=== PATIENT | male | born 1960 | race Caucasian/White ===

== ENCOUNTER → 2018-06-24 | Outpatient (CLI) | payer OTHER ==
--- NOTE | 2018-06-26 13:42 | PN ---
DATE OF SERVICE: 06/24/2018 Hospice [id number] Visit On Sunday, June 24, 2018, I saw Mr. Steven River at his primary residence in [place], [place]. Mr. River was seen for the purpose of a hospice [id number] visit to determine ongoing eligibility for hospice services. Mr. River has a primary hospice diagnosis of end-stage oxygen-dependent COPD. Since he was last seen, approximately 2 months ago, Mr. River has noted further decline in his respiratory and physical status. He has been totally housebound and for the most part, spends a vast majority of time in bed. He does get up to use the bathroom, but that is about it. He eats in bed. His respiratory status has been worse with increased shortness of breath with activity, and he feels progressively more weak and fatigued. His weight tends to vary dependent on his peripheral edema secondary to cor pulmonale. PHYSICAL EXAMINATION: CARDIAC: Distant heart sounds. S1, S2 normal. No murmurs, S3 or S4. LUNGS: Diffusely decreased breath sounds with bilateral loud expiratory wheezes and prolonged expiratory phase. Intermittent rhonchi are present. There are no rales. ABDOMEN: Soft and nontender without palpable masses or organomegaly. EXTREMITIES: At the present time, he has 1+ edema of both lower extremities extending into the lower legs. IMPRESSION: Mr. River has a primary hospice diagnosis of end-stage oxygen-dependent chronic obstructive pulmonary disease. He has shown evidence of further physical and respiratory decline over the last 60 days and remains very appropriate for hospice care. PLAN: Mr. River will be re-certified for hospice services for an additional 60 days. Catrachito Iverson MD /[id number]
== END ==
LOC: JP.FACEHOS 08:00
DX: Z51.5 Encounter for palliative care (principal)

== ENCOUNTER 2019-11-22 11:03 | Emergency (ER) | payer MEDICARE, OTHER ==
[2019-11-22] MEDS ORDERED: Morphine 4 MG/ML Syringe IVPUSH PRN (11:38)
[2019-11-22] MEDS ORDERED: Prochlorperazine 10 MG/2 ML SDV IVPUSH PRN (11:39)
[2019-11-22] MEDS ORDERED: Sodium Chloride 0.9% 1,000 ML IV SCH (11:45)
--- NOTE | 2019-11-22 11:54 | EDM.PDOC ---
ED HPI GENERAL MEDICAL PROBLEM - General Chief Complaint: General Stated Complaint: MEDICAL VIA [place] Time Seen by Provider: 11/22/19 11:06 Source of Information: Reports: Patient History Limitations: Reports: No Limitations - History of Present Illness INITIAL COMMENTS - FREE TEXT/NARRATIVE: 59-year-old male with multiple health problems including COPD, opioid analgesic therapy, diabetes mellitus type 2 and chronic pain presents to the emergency department with new onset of supraumbilical abdominal pain. He reports that started approximately 230 this morning and is moderately severe. It is cramping in nature and nonradiating. He denies nausea or vomiting. He reports his appetite is decreased. He had a bowel movement this morning which was normal. He denies fever or chills. Denies sweating. He denies chest pain. He is on many medications including an albuterol inhaler, oxycodone intermediate release and continuous release. He is on Ativan (but denies that he is currently taking it) metformin twice a day and prednisone 10 mg 2 daily. His primary care provider is Shey Aguila in [place]. - Related Data Allergies Allergy/AdvReac Type Severity Reaction Status Date / Time No Known Allergies Allergy Verified 11/22/19 12:01 Home Meds: Home Meds Albuterol [Ventolin HFA] 2 puff INH Q4HWA PRN 11/22/19 [History] Doxycycline Monohydrate 100 mg PO BID 11/22/19 [History] metFORMIN HCl [Metformin HCl] 500 mg PO BID 11/22/19 [History] oxyCODONE HCl [Oxycodone HCl] 30 mg PO Q4HWA PRN MDD 30 tabs 11/22/19 [History] oxyCODONE HCl [Oxycontin] 60 mg PO Q12HR PRN 11/22/19 [History] predniSONE [Prednisone] 10 mg PO BID 11/22/19 [History] Past Medical History Cardiovascular History: Reports: Hypertension Respiratory History: Reports: Bronchitis, Recurrent, Pneumonia, Recurrent, Pulmonary Fibrosis, Other (See Below) Other Respiratory History: Panlobar emphysema Endocrine/Metabolic History: Reports: Diabetes, Type II ED ROS GENERAL - Review of Systems Review Of Systems: See Below Constitutional: Denies: Fever, Chills, Diaphoresis HEENT: Reports: No Symptoms Respiratory: Reports: Shortness of Breath Cardiovascular: Reports: No Symptoms Endocrine: Denies: Polydypsia, Polyuria GI/Abdominal: Reports: Abdominal Pain. Denies: Constipation, Diarrhea, Nausea : Reports: No Symptoms Musculoskeletal: Reports: Other (Generalized muscle pain.) Psychiatric: Reports: Anxiety ED EXAM, GENERAL - Physical Exam Exam: See Below Exam Limited By: No Limitations General Appearance: Alert, Moderate Distress Ears: Normal External Exam, Normal Canal, Normal TMs Throat/Mouth: Normal Inspection Head: Normocephalic Respiratory/Chest: No Respiratory Distress Cardiovascular: Normal Peripheral Pulses, Regular Rate, Rhythm, No Murmur GI/Abdominal: Normal Bowel Sounds, Other (He has tenderness over the periumbilical area and epigastrium.) Extremities: Normal Inspection Psychiatric: Anxious Skin Exam: Warm, Dry, Intact Course - Vital Signs Text/Narrative:: This patient presents with new abdominal pain. Vital signs were stable and an IV was started. He was given the fluids as well as for milligrams of IV morphine and 5 mg IV Compazine. Imaging, EKG and lab work was ordered. His serum potassium was low at 2.1 and he was given a dose of IV KCl. P.o. KCl was ordered but he refused it. He has a lactic acid of 3.4 (he is on metformin. His blood sugar is elevated at 313 and uncorrected sodium was 128. Corrected sodium is 133. His serum CO2 was 36 and he had no anion gap. His creatinine is 1.3 and BUN is 56. His AST is elevated at 102 and ALT 71. Alkaline phosphatase is normal as is lipase. LDH is normal at 189. Urinalysis shows positive ketones but otherwise is normal. EKG shows no acute changes. The patient refused a chest x-ray. CT scan of the abdomen and pelvis shows no acute changes. The patient ambulated in the department without assistance. He difficult to manage in the department as he removed his IV multiple times and refused last including the x-ray as well as the oral potassium. The patient demonstrated that he understood the requests and could follow commands. His judgment did not seem to be impaired and his cognition appeared to be intact. The patient is being discharged home with his . He was advised to take a s tool softener and was given a prescription for supplemental potassium at 20 mEq twice daily for 2 weeks. He should follow-up with his primary care provider in the clinic. He will return here as needed. I believe his elevated lactic acid is a type B increase and related to his medications and COPD. The patient has no evidence of sepsis. The patient's vital signs are stable. Last Recorded V/S: Last Vital Signs Temp 37.1 C 11/22/19 11:22 Pulse 114 H 11/22/19 11:22 Resp 18 11/22/19 11:22 BP 116/65 11/22/19 11:22 Pulse Ox 93 L 11/22/19 11:22 - Orders/Labs/Meds Orders: Active Orders 24 hr Category Date Time Status Sodium Chloride 0.9% [Normal Saline] 1,000 ml Med 11/22/19 11:45 Active IV ASDIRECTED Sodium Chloride 0.9% [Normal Saline] 80 ml Med 11/22/19 12:45 Active IV ASDIRECTED Medication Orders Sodium Chloride (Normal Saline) 1,000 mls @ 1,000 mls/hr IV ASDIRECTED BETTYE Last Admin: 11/22/19 12:33 Dose: 1,000 mls/hr Documented by: MANE Sodium Chloride (Normal Saline) 80 mls @ 3.5 mls/sec IV ASDIRECTED BETTYE Last Admin: 11/22/19 12:49 Dose: 3.5 mls/sec Documented by: NATIVIDAD Labs: Laboratory Tests 11/22/19 11/22/19 11/22/19 Range/Units 11:43 12:03 12:03 Sodium 128 L (140-148) mmol/L Potassium 2.1 L* (3.6-5.2) mmol/L Chloride 84 L (100-108) mmol/L Carbon Dioxide 36 H (21-32) mmol/L Anion Gap 10.1 (5.0-14.0) mmol/L BUN 10 (7-18) mg/dL Creatinine 1.3 (0.8-1.3) mg/dL Est Cr Clr Drug Dosing 63.55 mL/min Estimated GFR (MDRD) 56 L (>60) Glucose 313 H (74-106) mg/dL Lactic Acid 3.4 H (0.4-2.0) mmol/L Calcium 8.7 (8.5-10.1) mg/dL Total Bilirubin 1.6 H (0.2-1.0) mg/dL AST 102 H (15-37) U/L ALT 71 (12-78) U/L Alkaline Phosphatase 82 (46-116) U/L Lactate Dehydrogenase 189 (85-227) U/L Troponin I < 0.017 (0.000-0.056) ng/mL Total Protein 6.7 (6.4-8.2) g/dL Albumin 2.8 L (3.4-5.0) g/dL Globulin 3.9 H (2.3-3.5) g/dL Albumin/Globulin Ratio 0.7 L (1.2-2.2) Lipase 98 (73-393) U/L Urine Color Yellow (YELLOW) Urine Appearance Clear (CLEAR) Urine pH 8.5 H (5.0-8.0) Ur Specific [place] 1.015 (1.008-1.030) Urine Protein Negative (NEGATIVE) mg/dL Urine Glucose (UA) 250 H (NEGATIVE) mg/dL Urine Ketones 15 H (NEGATIVE) mg/dL Urine Occult Blood Negative (NEGATIVE) Urine Nitrite Negative (NEGATIVE) Urine Bilirubin Negative (NEGATIVE) Urine Urobilinogen 2.0 H (0.2-1.0) EU/dL Ur Leukocyte Esterase Negative (NEGATIVE) Urine RBC Not seen (0-5) Urine WBC Not seen (0-5) Ur Epithelial Cells Rare Amorphous Sediment Rare Urine Bacteria Not seen Urine Mucus Rare Meds: Medications Generic Name Dose Route Start Last Admin Trade Name Freq PRN Reason Stop Dose Admin Sodium Chloride 1,000 mls @ 1,000 mls/hr 11/22/19 11:45 11/22/19 12:33 Normal Saline IV 1,000 mls/hr ASDIRECTED BETTYE Administration Sodium Chloride 80 mls @ 3.5 mls/sec 11/22/19 12:45 11/22/19 12:49 Normal Saline IV 3.5 mls/sec ASDIRECTED BTETYE Administration Discontinued Medications Generic Name Dose Route Start Last Admin Trade Name Freq PRN Reason Stop Dose Admin Prochlorperazine Edisylate 5 51 mls @ 150 mls/hr 11/22/19 12:26 mg/ Sodium Chloride IV 11/22/19 12:46 ONETIME ONE Potassium Chloride 20 meq/ 100 mls @ 50 mls/hr 11/22/19 12:51 11/22/19 13:11 Premix IV 11/22/19 14:50 50 mls/hr ONETIME ONE Administration Iopamidol 130 ml 11/22/19 12:45 11/22/19 12:49 Isovue-300 (61%) IV 11/22/19 12:46 130 ml ONETIME ONE Administration Morphine Sulfate 4 mg 11/22/19 11:38 Morphine IVPUSH Q2H PRN Abdominal Pain Morphine Sulfate 4 mg 11/22/19 12:25 Morphine IVPUSH 11/22/19 12:26 ONETIME ONE Potassium Chloride 40 meq 11/22/19 13:30 11/22/19 13:26 Klor-Con M20 PO 11/22/19 13:31 40 meq ONETIME ONE Administration Prochlorperazine Edisylate 5 mg 11/22/19 11:39 Compazine IVPUSH Q6H PRN Nausea/Vomiting Prochlorperazine Edisylate 5 mg 11/22/19 12:55 11/22/19 13:11 Compazine IVPUSH 11/22/19 12:56 5 mg ONETIME ONE Administration Sodium Chloride 10 ml 11/22/19 12:45 11/22/19 12:49 Saline Flush FLUSH 11/22/19 12:46 10 ml ONETIME ONE Administration Departure - Departure Time of Disposition: 15:19 Disposition: Home, Self-Care 01 Condition: Fair Clinical Impression: Abdominal pain, Hypokalemia - Discharge Information *PRESCRIPTION DRUG MONITORING PROGRAM REVIEWED*: No *COPY OF PRESCRIPTION DRUG MONITORING REPORT IN PATIENT VIN: No Instructions: Hypokalemia Referrals: PCP,None [Primary Care Provider] - Forms: ED Department Discharge Additional Instructions: Take your usual medications. Follow-up with your primary care provider. Sepsis Event Note (ED) - Evaluation Sepsis Screening Result: No Definite Risk - Focused Exam Vital Signs: Vital Signs Temp Pulse Resp BP Pulse Ox 11/22/19 11:22 37.1 C 114 H 18 116/65 93 L 11/22/19 11:16 114 H 18 116/65 93 L - My Orders Last 24 Hours: My Active Orders 11/22/19 11:45 Sodium Chloride 0.9% [Normal Saline] 1,000 ml IV ASDIRECTED 11/22/19 12:45 Sodium Chloride 0.9% [Normal Saline] 80 ml IV ASDIRECTED - Assessment/Plan Last 24 Hours: My Active Orders 11/22/19 11:45 Sodium Chloride 0.9% [Normal Saline] 1,000 ml IV ASDIRECTED 11/22/19 12:45 Sodium Chloride 0.9% [Normal Saline] 80 ml IV ASDIRECTED
[2019-11-22] MEDS ORDERED: Morphine 4 MG/ML Syringe IVPUSH ONE (12:25)
[2019-11-22] MEDS ORDERED: Prochlorperazine 5 MG in Sodium Chloride 0.9% 50 ML IV ONE (12:26)
[2019-11-22] MEDS ORDERED: Sodium Chloride 0.9% 80 ML IV SCH (12:45)
[2019-11-22] MEDS ORDERED: Sodium Chloride 0.9% 10 ML Syringe FLUSH ONE (12:45)
[2019-11-22] MEDS ORDERED: Iopamidol 612 MG/ML 500 ML Multipack Bottle IV ONE (12:45)
[2019-11-22] MEDS ORDERED: Potassium Chloride 20 MEQ in Premix Bag 1 BAG IV ONE (12:51)
[2019-11-22] MEDS ORDERED: Prochlorperazine 10 MG/2 ML SDV IVPUSH ONE (12:55)
[2019-11-22] MEDS ORDERED: Potassium Chloride 20 MEQ Tab.ER PO ONE (13:30)
--- NOTE | 2019-11-22 13:40 | CT ---
Abdomen Pelvis w Cont CLINICAL HISTORY: Epigastric pain COMPARISON: None. TECHNIQUE: Transverse scans were obtained from the base of the lungs to the pubic symphysis following oral contrast and IV infusion of contrast.Auto dosage reduction and iterative reconstructiontechniques employed. FINDINGS: The lung bases contain to granulomata on the left. The liver shows some diffuse fatty infiltration. There is a subcentimeter vague low-attenuation focus in the medial segment of the left lobe of the liver. This may be a small cyst.. The gallbladder has a normal appearance. The spleen contains a few granulomata. Its upper limits of normal size. The pancreas shows no mass or inflammatory change. The adrenal glands appear normal bilaterally . The kidneys show no mass, stones or hydronephrosis. The ureters have a normal course and caliber. The aorta shows atheromatous plaque without aneurysm. There is no suspicious retroperitoneal adenopathy. The intestinal configuration is nonacute. The appendix has a normal contour there are a few scattered isolated diverticula without evidence of diverticulitis. IMPRESSION: Fatty infiltration the liver Borderline splenomegaly Previous granulomatous exposure Minimal diverticulosis without evidence of diverticulitis
== END 2019-11-22 16:37 | disposition home or self-care (01) ==
LOC: JP.ED 11:03 → EEVIPCON 11:03 → JP.ED 16:37
DX: E87.6 Hypokalemia (principal); R10.33 Periumbilical pain; R10.13 Epigastric pain; I10 Essential (primary) hypertension; J44.9 Chronic obstructive pulmonary disease, unspecified; E11.9 Type 2 diabetes mellitus without complications; Z79.899 Other long term (current) drug therapy; Z79.84 Long term (current) use of oral hypoglycemic drugs
CPT/HCPCS: 36415; 74177; 80053; 81001; 83605; 83615; 83690; 84484; 96361; 96365; 96366; 96375; 99284; 99285; A9270; J0780; J3480; J7030; J7050; Q9967

== ENCOUNTER 2020-12-20 13:23 | Emergency (ER) | payer MEDICARE, SELFPAY ==
[2020-12-20] MEDS ORDERED: Sodium Chloride 0.9% 500 ML IV ONE (14:05)
--- NOTE | 2020-12-20 14:12 | EDM.PDOC ---
ED HPI GENERAL MEDICAL PROBLEM - General Chief Complaint: Neurological Problem Stated Complaint: SOB,CONFUSION Time Seen by Provider: 12/20/20 13:33 Source of Information: Reports: Patient, Family, Old Records History Limitations: Reports: Altered Mental Status - History of Present Illness INITIAL COMMENTS - FREE TEXT/NARRATIVE: 60-year-old male sent from doctor's office where he appeared today with notable confusion according to the of increasing severity for the last several days or weeks. He is not apparent been eating well or drinking well and was noted by the nurse today to have his mask on vertically and when he was offered water he could not find his mouth. reports has not been this confused before as he is usually fully mentally alert. He is on supplemental oxygen at home but current because of severe COPD apparently and on the visit to the emergency department recently he was not have a potassium of about 2 and other chemistry abnormalities although he did go home later in the stay. He apparently has bad COPD as a principal problem. Apparently recently diagnosed with diabetes as well and started on insulin. - Related Data Allergies Allergy/AdvReac Type Severity Reaction Status Date / Time No Known Allergies Allergy Verified 12/20/20 13:29 Home Meds: Home Meds Albuterol [Ventolin HFA] 2 puff INH Q4HWA PRN 11/22/19 [History] Doxycycline Monohydrate 100 mg PO BID 11/22/19 [History] metFORMIN HCl [Metformin HCl] 500 mg PO BID 11/22/19 [History] oxyCODONE HCl [Oxycodone HCl] 30 mg PO Q4HWA PRN MDD 30 tabs 11/22/19 [History] oxyCODONE HCl [Oxycontin] 60 mg PO Q12HR PRN 11/22/19 [History] predniSONE [Prednisone] 10 mg PO BID 11/22/19 [History] Past Medical History Cardiovascular History: Reports: Hypertension Respiratory History: Reports: Bronchitis, Recurrent, Pneumonia, Recurrent, Pulm onary Fibrosis, Other (See Below) Other Respiratory History: Panlobar emphysema Endocrine/Metabolic History: Reports: Diabetes, Type II Social & Family History - Tobacco Use Tobacco Use Status *Q: Never Tobacco User ED ROS GENERAL - Review of Systems Review Of Systems: Comprehensive ROS is negative, except as noted in HPI. (Review of systems done between patient and ) - Physical Exam Exam: See Below Text/Narrative:: 60-year-old male with relatively normal vital signs sitting on a gurney trying to give me history but does slowly and repetitively and does not seem to really understand what he is talking about. History is primarily given by the . HEENT shows eyes ears nose and throat appear to be normal mouth is perhaps dry. There is no facial droop and pelvis are nontender on compression Neck is supple normal range of motion Chest is got some scattered rhonchi but regular rate and rhythm and no murmur is noted Abdomen is very large and he has superficial veins noted. Extremities have some edema of the ankles lower foster areas as well. Skin without rash Neuro he does not have any focal deficits and moves extremities but he is not standing and I did not get him up to check that as he still confused and so big. Exam Limited By: Altered Mental Status Course - Vital Signs Text/Narrative:: 60-year-old male who is allegedly on hospice has COPD on oxygen at home came in because he was very confused today. His chemistries were abnormal and we replaced the potassium and hydrated him. No obvious source of infection was found CAT scan of the head was basically negative. He is feeling better by 6 PM and is discharged as were having no beds here and he does not want to stay in the hospital anyhow. He is advised to follow his physician in the [place] tomorrow and get his chemistries rechecked and if all else fails to return here. Patient was able to ambulate from his home to the car in the emergency department earlier Last Recorded V/S: Last Vital Signs Temp 36.3 C 12/20/20 13:24 Pulse 90 12/20/20 17:21 Resp 20 12/20/20 13:24 BP 104/63 12/20/20 17:21 Pulse Ox 93 L 12/20/20 17:21 - Orders/Labs/Meds Orders: Active Orders 24 hr Category Date Time Status Dextrose 5%-0.9% NaCl with KCl [D5 NS with 20 mEq KCl] Med 12/20/20 15:45 Active 1,000 ml IV ASDIRECTED Sodium Chloride 0.9% [Normal Saline] 1,000 ml Med 12/20/20 15:45 Active IV ASDIRECTED EKG 12 Lead [EK] Stat Ther 12/20/20 14:02 Ordered Medication Orders Potassium Chloride/Dextrose/Sod Cl (D5 Ns With 20 Meq Kcl) 1,000 mls @ 150 mls/hr IV ASDIRECTED BETTYE Last Admin: 12/20/20 15:52 Dose: 150 mls/hr Documented by: RODRICK Sodium Chloride (Normal Saline) 1,000 mls @ 0 mls/hr IV ASDIRECTED BETTYE Labs: Laboratory Tests 12/20/20 12/20/20 12/20/20 Range/Units 14:02 14:02 14:02 WBC 12.4 H (4.5-11.0) K/uL RBC 3.80 L (4.30-5.90) M/uL Hgb 9.5 L (12.0-15.0) g/dL Hct 31.8 L (40.0-54.0) % MCV 84 (80-98) fL MCH 25 L (27-31) pg MCHC 30 L (32-36) % Plt Count 341 (150-400) K/uL PT 11.8 H (9.2-10.6) sec INR 1.2 ABG Hemoglobin 9.7 L (13.5-18.0) g/dL ABG Oxyhemoglobin 92.2 % ABG Carboxyhemoglobin 2.8 H (0.0-1.6) % ABG Methemoglobin 0.4 % VBG pH 7.512 H (7.350-7.450) VBG pCO2 43.0 mm/Hg VBG pO2 74.5 mm/Hg VBG HCO3 34.3 mmol/L VBG Total CO2 31.4 mmol/L VBG O2 Saturation 95.2 VBG O2 Content 12.7 %vol VBG Base Excess 10.3 mm/L O2 Delivery Device Nasal cannula Sodium (140-148) mmol/L Potassium (3.6-5.2) mmol/L Chloride (100-108) mmol/L Carbon Dioxide (21-32) mmol/L Anion Gap (5.0-14.0) mmol/L BUN (7-18) mg/dL Creatinine (0.8-1.3) mg/dL Est Cr Clr Drug Dosing mL/min Estimated GFR (MDRD) (>60) Glucose (74-106) mg/dL Calcium (8.5-10.1) mg/dL Magnesium (1.8-2.4) mg/dL Total Bilirubin (0.2-1.0) mg/dL AST (15-37) U/L ALT (12-78) U/L Alkaline Phosphatase (46-116) U/L Ammonia (11-32) umol/L C-Reactive Protein (0.0-0.3) mg/dL NT-Pro-B Natriuret Pep (5-125) pg/mL Total Protein (6.4-8.2) g/dL Albumin (3.4-5.0) g/dL Globulin (2.3-3.5) g/dL Albumin/Globulin Ratio (1.2-2.2) Urine Color (YELLOW) Urine Appearance (CLEAR) Urine pH (5.0-8.0) Ur Specific [place] (1.008-1.030) Urine Protein (NEGATIVE) mg/dL Urine Glucose (UA) (NEGATIVE) mg/dL Urine Ketones (NEGATIVE) mg/dL Urine Occult Blood (NEGATIVE) Urine Nitrite (NEGATIVE) Urine Bilirubin (NEGATIVE) Urine Urobilinogen (0.2-1.0) EU/dL Ur Leukocyte Esterase (NEGATIVE) Urine RBC (0-5) Urine WBC (0-5) Ur Epithelial Cells Amorphous Sediment Urine Bacteria Urine Mucus 12/20/20 12/20/20 12/20/20 Range/Units 14:02 14:04 14:04 WBC (4.5-11.0) K/uL RBC (4.30-5.90) M/uL Hgb (12.0-15.0) g/dL Hct (40.0-54.0) % MCV (80-98) fL MCH (27-31) pg MCHC (32-36) % Plt Count (150-400) K/uL PT (9.2-10.6) sec INR ABG Hemoglobin (13.5-18.0) g/dL ABG Oxyhemoglobin % ABG Carboxyhemoglobin (0.0-1.6) % ABG Methemoglobin % VBG pH (7.350-7.450) VBG pCO2 mm/Hg VBG pO2 mm/Hg VBG HCO3 mmol/L VBG Total CO2 mmol/L VBG O2 Saturation VBG O2 Content %vol VBG Base Excess mm/L O2 Delivery Device Sodium 130 L (140-148) mmol/L Potassium 3.2 L (3.6-5.2) mmol/L Chloride 90 L (100-108) mmol/L Carbon Dioxide 32 (21-32) mmol/L Anion Gap 11.2 (5.0-14.0) mmol/L BUN 17 D (7-18) mg/dL Creatinine 1.2 (0.8-1.3) mg/dL Est Cr Clr Drug Dosing 66.94 mL/min Estimated GFR (MDRD) > 60 (>60) Glucose 240 H (74-106) mg/dL Calcium 9.1 (8.5-10.1) mg/dL Magnesium 1.7 L (1.8-2.4) mg/dL Total Bilirubin 0.7 D (0.2-1.0) mg/dL AST 66 H (15-37) U/L ALT 48 (12-78) U/L Alkaline Phosphatase 105 (46-116) U/L Ammonia 39 H (11-32) umol/L C-Reactive Protein 2.42 H (0.0-0.3) mg/dL NT-Pro-B Natriuret Pep 111 (5-125) pg/mL Total Protein 7.4 (6.4-8.2) g/dL Albumin 3.3 L (3.4-5.0) g/dL Globulin 4.1 H (2.3-3.5) g/dL Albumin/Globulin Ratio 0.8 L (1.2-2.2) Urine Color (YELLOW) Urine Appearance (CLEAR) Urine pH (5.0-8.0) Ur Specific [place] (1.008-1.030) Urine Protein (NEGATIVE) mg/dL Urine Glucose (UA) (NEGATIVE) mg/dL Urine Ketones (NEGATIVE) mg/dL Urine Occult Blood (NEGATIVE) Urine Nitrite (NEGATIVE) Urine Bilirubin (NEGATIVE) Urine Urobilinogen (0.2-1.0) EU/dL Ur Leukocyte Esterase (NEGATIVE) Urine RBC (0-5) Urine WBC (0-5) Ur Epithelial Cells Amorphous Sediment Urine Bacteria Urine Mucus 12/20/20 Range/Units 16:48 WBC (4.5-11.0) K/uL RBC (4.30-5.90) M/uL Hgb (12.0-15.0) g/dL Hct (40.0-54.0) % MCV (80-98) fL MCH (27-31) pg MCHC (32-36) % Plt Count (150-400) K/uL PT (9.2-10.6) sec INR ABG Hemoglobin (13.5-18.0) g/dL ABG Oxyhemoglobin % ABG Carboxyhemoglobin (0.0-1.6) % ABG Methemoglobin % VBG pH (7.350-7.450) VBG pCO2 mm/Hg VBG pO2 mm/Hg VBG HCO3 mmol/L VBG Total CO2 mmol/L VBG O2 Saturation VBG O2 Content %vol VBG Base Excess mm/L O2 Delivery Device Sodium (140-148) mmol/L Potassium (3.6-5.2) mmol/L Chloride (100-108) mmol/L Carbon Dioxide (21-32) mmol/L Anion Gap (5.0-14.0) mmol/L BUN (7-18) mg/dL Creatinine (0.8-1.3) mg/dL Est Cr Clr Drug Dosing mL/min Estimated GFR (MDRD) (>60) Glucose (74-106) mg/dL Calcium (8.5-10.1) mg/dL Magnesium (1.8-2.4) mg/dL Total Bilirubin (0.2-1.0) mg/dL AST (15-37) U/L ALT (12-78) U/L Alkaline Phosphatase (46-116) U/L Ammonia (11-32) umol/L C-Reactive Protein (0.0-0.3) mg/dL NT-Pro-B Natriuret Pep (5-125) pg/mL Total Protein (6.4-8.2) g/dL Albumin (3.4-5.0) g/dL Globulin (2.3-3.5) g/dL Albumin/Globulin Ratio (1.2-2.2) Urine Color Yellow (YELLOW) Urine Appearance Cloudy A (CLEAR) Urine pH 8.5 H (5.0-8.0) Ur Specific [place] 1.020 (1.008-1.030) Urine Protein Negative (NEGATIVE) mg/dL Urine Glucose (UA) Normal (NEGATIVE) mg/dL Urine Ketones Negative (NEGATIVE) mg/dL Urine Occult Blood Negative (NEGATIVE) Urine Nitrite Negative (NEGATIVE) Urine Bilirubin Negative (NEGATIVE) Urine Urobilinogen 0.2 (0.2-1.0) EU/dL Ur Leukocyte Esterase Negative (NEGATIVE) Urine RBC Not seen (0-5) Urine WBC Not seen (0-5) Ur Epithelial Cells Rare Amorphous Sediment Numerous Urine Bacteria Moderate Urine Mucus Not seen Meds: Medications Generic Name Dose Route Start Last Admin Trade Name Frejefferson PRN Reason Stop Dose Admin Potassium Chloride/Dextrose/Sod Cl 1,000 mls @ 150 mls/hr 12/20/20 15:45 12/20/20 15:52 D5 Ns With 20 Meq Kcl IV 150 mls/hr ASDIRECTED BETTYE Administration Sodium Chloride 1,000 mls @ 0 mls/hr 12/20/20 15:45 Normal Saline IV ASDIRECTED BETTYE KVO Discontinued Medications Generic Name Dose Route Start Last Admin Trade Name Freq PRN Reason Stop Dose Admin Sodium Chloride 500 mls @ 500 mls/hr 12/20/20 14:05 12/20/20 14:16 Normal Saline IV 12/20/20 15:04 500 mls/hr .BOLUS ONE Administration Potassium Chloride 20 meq 12/20/20 15:35 12/20/20 15:43 Potassium Chloride 20 Meq Tab.Er PO 12/20/20 15:36 20 meq ONETIME ONE Administration Departure - Departure Time of Disposition: 18:15 Disposition: Home, Self-Care 01 Condition: Good Clinical Impression: Hyponatremia, Hypokalemia, Hypochloremia, Hypomagnesemia, Confusion - Discharge Information Referrals: Shey Aguila PA [Primary Care Provider] - Forms: ED Department Discharge Additional Instructions: Follow-up with your primary tomorrow for recheck of chemistries and return as necessary Sepsis Event Note (ED) - Evaluation Sepsis Screening Result: No Definite Risk - Focused Exam Vital Signs: Vital Signs Temp Pulse Resp BP Pulse Ox 12/20/20 17:21 90 104/63 93 L 12/20/20 16:38 91 94/57 L 91 L 12/20/20 13:24 36.3 C 104 H 20 129/68 97 - My Orders Last 24 Hours: My Active Orders 12/20/20 14:02 EKG 12 Lead [EK] Stat 12/20/20 15:45 Dextrose 5%-0.9% NaCl with KCl [D5 NS with 20 mEq KCl] 1,000 ml IV ASDIRECTED Sodium Chloride 0.9% [Normal Saline] 1,000 ml IV ASDIRECTED - Assessment/Plan Last 24 Hours: My Active Orders 12/20/20 14:02 EKG 12 Lead [EK] Stat 12/20/20 15:45 Dextrose 5%-0.9% NaCl with KCl [D5 NS with 20 mEq KCl] 1,000 ml IV ASDIRECTED Sodium Chloride 0.9% [Normal Saline] 1,000 ml IV ASDIRECTED
--- NOTE | 2020-12-20 14:41 | CR ---
CHEST: Portable 12/20/2020 at 228 CLINICAL HISTORY:Pain COMPARISON:None FINDINGS: There is minimal patchy dense in the left upper lobe. Some of this may be superimposition. There is a 1 cm nodular focus overlying the cardiac apex. There are atherosclerotic changes in the aorta. Impression: Increased left upper lobe lung markings. This may be artifactual. Infiltrate is not excluded 1 cm pulmonary nodule left lower lobe was seen is a densely calcified granuloma a prior CT chest
[2020-12-20] MEDS ORDERED: Potassium Chloride 20 MEQ Tab.ER PO ONE (15:35)
[2020-12-20] MEDS ORDERED: Dextrose 5%-0.9% NaCl with KCl 1,000 ML IV SCH (15:45)
[2020-12-20] MEDS ORDERED: Sodium Chloride 0.9% 1,000 ML IV SCH (15:45)
--- NOTE | 2020-12-20 16:47 | CRLCT ---
For Patients: As a result of the Century Cures Act, medical imaging exams and procedure reports are released immediately into your electronic medical record. You may view this report before your referring provider. If you have questions, please contact your health care provider. INDICATION: Confusion. TECHNIQUE: Scanning of the head was performed without IV contrast material. Coronal and sagittal reconstructions were obtained. COMPARISON: None. FINDINGS: No acute hemorrhage, parenchymal attenuation abnormality, or mass effect is demonstrated. Differentiation between the morales matter and white matter is preserved. The ventricles are within normal limits. The fissures and sulci are relatively prominent for the patient`s age, consistent with mild volume loss. No calvarial abnormality is evident. The visualized paranasal and mastoid sinuses are clear. IMPRESSION: 1. No acute abnormality. 2. Mild cortical volume loss. Please note that all CT scans at this facility use dose modulation, iterative reconstruction, and/or weight-based dosing when appropriate to reduce radiation dose to as low as reasonably achievable. Dictated by Codey Frankel MD @ 12/20/2020 4:45:36 PM (Electronically Signed)
== END 2020-12-20 18:45 | disposition home or self-care (01) ==
LOC: JP.ED 13:23
DX: E87.6 Hypokalemia (principal); E87.1 Hypo-osmolality and hyponatremia; E87.8 Other disorders of electrolyte and fluid balance, not elsewhere classified; E83.42 Hypomagnesemia; I10 Essential (primary) hypertension; E11.9 Type 2 diabetes mellitus without complications; Z79.84 Long term (current) use of oral hypoglycemic drugs; Z79.899 Other long term (current) drug therapy
CPT/HCPCS: 36415; 70450; 71045; 80053; 81001; 82140; 82803; 83735; 83880; 85027; 85610; 86140; 93005; 96365; 96366; 99285; A9270; J3480; J7040

== ENCOUNTER 2021-01-29 16:10 | Emergency (ER) | payer MEDICARE ==
[2021-01-29] MEDS ORDERED: Ketamine 500 MG/5 ML MDV IV ONE (18:08)
--- NOTE | 2021-01-29 18:18 | EDM.PDOC ---
ED HPI GENERAL MEDICAL PROBLEM - General Chief Complaint: Back Pain or Injury Stated Complaint: MEDICAL VIA TRI Time Seen by Provider: 01/29/21 18:00 Source of Information: Reports: Patient, EMS History Limitations: Reports: No Limitations - History of Present Illness INITIAL COMMENTS - FREE TEXT/NARRATIVE: Linda is a 60-year-old male brought in by [facility] for evaluation of epigastric abdominal pain and chronic low back pain. The patient reports that his kids came to visit him at the end of last week and he had his oxycodone pills in his pants pocket. Over the weekend he washed his clothes not remembering that his pills were in the pants pocket and washed all his oxycodone down the drain. He has not taken his oxycodone since Friday and now comes in in excruciating pain starting in the epigastric region and radiating bilaterally to the back. Patient reports he had a normal bowel movement today. He denies any new injuries. He saw his provider last week who did a CT of his abdomen concerned that he may have a GI bleed. He did report that his blood work showed that he was a little anemic. Back Pain Score (Numeric/FACES): 10 - Related Data Allergies Allergy/AdvReac Type Severity Reaction Status Date / Time No Known Allergies Allergy Verified 01/29/21 16:27 Home Meds: Home Meds Albuterol [Ventolin HFA] 2 puff INH Q4HWA PRN 11/22/19 [History] Doxycycline Monohydrate 100 mg PO BID 11/22/19 [History] metFORMIN HCl [Metformin HCl] 100 mg PO BID 11/22/19 [History] oxyCODONE HCl [Oxycodone HCl] 30 mg PO Q4HWA PRN MDD 30 tabs 11/22/19 [History] oxyCODONE HCl [Oxycontin] 60 mg PO Q12HR PRN 11/22/19 [History] predniSONE [Prednisone] 20 mg PO BID 11/22/19 [History] Codeine Phosphate/Guaifenesin [Guaiatussin AC Liquid] 10 ml PO Q4HR PRN 01/29/21 [History] Ferrous Sulfate 325 mg PO BID 01/29/21 [History] Insulin Aspart [NovoLOG] 12 unit SQ TID 01/29/21 [History] Insulin Degludec [Tresiba Flextouch U-200] 45 units SQ DAILY 01/29/21 [History] Insulin Lispro [Humalog] 12 unit SQ TID 01/29/21 [History] LORazepam [Lorazepam] 0.5 mg PO Q4HR 01/29/21 [History] Lactobacillus Acidophilus [Acidophilus] 1 each PO DAILY 01/29/21 [History] Naloxone HCl [Narcan] 4 mg NS ASDIRECTED 01/29/21 [History] Potassium Chloride 10 meq PO BID 01/29/21 [History] hydroCHLOROthiazide [Hydrochlorothiazide] 50 mg PO DAILY 01/29/21 [History] Past Medical History Cardiovascular History: Reports: Hypertension Respiratory History: Reports: Bronchitis, Recurrent, Pneumonia, Recurrent, Pulmonary Fibrosis, Other (See Below) Other Respiratory History: Panlobar emphysema Endocrine/Metabolic History: Reports: Diabetes, Type II Social & Family History - Tobacco Use Tobacco Use Status *Q: Former Tobacco User Used Tobacco, but Quit: Yes Month/Year Tobacco Last Used: 30 years - Recreational Drug Use Recreational Drug Use: No ED ROS GENERAL - Review of Systems Review Of Systems: See Below Constitutional: Reports: No Symptoms HEENT: Reports: No Symptoms Respiratory: Reports: No Symptoms Cardiovascular: Reports: No Symptoms Endocrine: Reports: No Symptoms GI/Abdominal: Reports: Abdominal Pain (Epigastric pain radiating around to the low back) : Reports: No Symptoms Musculoskeletal: Reports: Back Pain (Chronic low back pain on oxycodone pain contract) Skin: Reports: No Symptoms Neurological: Reports: No Symptoms Psychiatric: Reports: Agitation, Anxiety Hematologic/Lymphatic: Reports: No Symptoms Immunologic: Reports: No Symptoms ED EXAM, GENERAL - Physical Exam Exam: See Below Exam Limited By: No Limitations General Appearance: Alert, Anxious, Moderate Distress Eye Exam: Bilateral Eye: EOMI, PERRL Throat/Mouth: Normal Inspection, Normal Oropharynx, Normal Voice, No Airway Compromise Head: Atraumatic, Normocephalic Neck: Normal Inspection, Supple. No: Lymphadenopathy (R), Lymphadenopathy (L) Respiratory/Chest: No Respiratory Distress, Lungs Clear, Normal Breath Sounds Cardiovascular: Normal Peripheral Pulses, Regular Rate, Rhythm, No Murmur Peripheral Pulses: 2+: Radial (L), Radial (R) GI/Abdominal: Normal Bowel Sounds, Soft, Distended (Tympany to percussion throughout the abdomen), Tender (Epigastric tenderness palpation). No: Guarding, Rigid, Rebound Back Exam: Paraspinal Tenderness (Bilateral lower back). No: Vertebral Tenderness Extremities: Normal Inspection, Normal Range of Motion, Pedal Edema (1+ pedal edema) Neurological: Alert, Oriented, Normal Cognition, No Motor/Sensory Deficits Psychiatric: Anxious Skin Exam: Warm, Dry, Intact, Normal Color Course - Vital Signs Last Recorded V/S: Last Vital Signs Temp 36.7 C 01/29/21 16:20 Pulse 114 H 01/29/21 16:20 Resp 20 01/29/21 16:20 BP 107/68 01/29/21 16:20 Pulse Ox 99 01/29/21 16:20 - Orders/Labs/Meds Orders: Active Orders 24 hr Category Date Time Status Abdomen 2V AP Flat Upright [CR] Stat Exams 01/29/21 20:47 Taken UA W/MICROSCOPIC [URIN] Stat Lab 01/29/21 18:09 Ordered Labs: Laboratory Tests 01/29/21 01/29/21 Range/Units 18:19 18:19 WBC 14.4 H (4.5-11.0) K/uL RBC 4.13 L (4.30-5.90) M/uL Hgb 10.4 L (12.0-15.0) g/dL Hct 33.9 L (40.0-54.0) % MCV 82 (80-98) fL MCH 25 L (27-31) pg MCHC 31 L (32-36) % Plt Count 253 (150-400) K/uL Neut % (Auto) 71.7 H (36-66) % Lymph % (Auto) 15.0 L (24-44) % Hall % (Auto) 9.4 H (2-6) % Eos % (Auto) 3.3 (2-4) % Baso % (Auto) 0.6 (0-1) % Sodium 126 L (140-148) mmol/L Potassium 2.8 L* (3.6-5.2) mmol/L Chloride 86 L (100-108) mmol/L Carbon Dioxide 33 H (21-32) mmol/L Anion Gap 9.8 (5.0-14.0) mmol/L BUN 18 (7-18) mg/dL Creatinine 1.1 (0.8-1.3) mg/dL Est Cr Clr Drug Dosing 74.16 mL/min Estimated GFR (MDRD) > 60 (>60) Glucose 135 H (74-106) mg/dL Calcium 8.6 (8.5-10.1) mg/dL Total Bilirubin 0.8 (0.2-1.0) mg/dL AST 50 H (15-37) U/L ALT 44 (12-78) U/L Alkaline Phosphatase 121 H (46-116) U/L C-Reactive Protein 1.96 H (0.0-0.3) mg/dL Total Protein 6.6 (6.4-8.2) g/dL Albumin 3.0 L (3.4-5.0) g/dL Globulin 3.6 H (2.3-3.5) g/dL Albumin/Globulin Ratio 0.8 L (1.2-2.2) Lipase 62 L (73-393) U/L Meds: Medications Discontinued Medications Generic Name Dose Route Start Last Admin Trade Name Freq PRN Reason Stop Dose Admin Al Hydroxide/Mg Hydroxide 30 ml 01/29/21 21:40 01/29/21 21:49 Aluminum Hydroxide/Magnesium Hydroxide/Simethicone Susp 30 Ml Cup PO 01/29/21 21:41 30 ml ONETIME STA Administration Hydromorphone HCl 1 mg 01/29/21 20:07 01/29/21 20:24 Hydromorphone 1 Mg/Ml Syringe IVPUSH 01/29/21 20:08 1 mg ONETIME ONE Administration Hydromorphone HCl 1 mg 01/29/21 21:35 01/29/21 21:41 Hydromorphone 1 Mg/Ml Syringe IVPUSH 01/29/21 21:36 1 mg ONETIME ONE Administration Ketamine HCl 35 mg 01/29/21 18:08 01/29/21 18:23 Ketamine 500 Mg/5 Ml Mdv IV 01/29/21 18:09 35 mg ONETIME ONE Administration Potassium Chloride 40 meq 01/29/21 20:35 01/29/21 21:41 Potassium Chloride 20 Meq Tab.Er PO 01/29/21 20:36 40 meq ONETIME ONE Administration - Radiology Interpretation Free Text/Narrative:: I reviewed the two-view abdominal x-ray showing copious amount of colonic flatus and stool consistent with slow transition constipation due to his opiates. - Re-Assessments/Exams Free Text/Narrative Re-Assessment/Exam: 01/29/21 22:05 I reviewed the patient's labs showing a mild leukocytosis of 14.4 with a hemoglobin of 10.4 and a normal platelet count. This is a normal differential on the leukocyte count. His sodium is 126, potassium 2.8, chloride of 86, bicarbonate of 33, BUN of 18 with a creatinine 1.1 and glucose 135. AST is 50, ALT at 44, CRP of 1.96 and lipase of 62. Patient was given K-Liliana 40 mEq by mouth for his hypokalemia. We were able to get his pain under control initially with 35 mg IV and then later with Dilaudid 1 mg IV x2. I did instruct the patient to contact his primary provider about refilling his chronic pain medication (oxycodone) I would not be able to do that in the ER because of the pain contract. I do think that the prime reason the patient is having epigastric pain is because he is withdrawing from his oxycodone unmasking all of his pain symptoms as he is on a substantial amount daily for quite some time. There is nothing requires hospitalization at this time. Indications return to ED were discussed and he was discharged in satisfactory condition. Departure - Departure Time of Disposition: 22:01 Disposition: Home, Self-Care 01 Clinical Impression: Excessive flatus, Slow transit constipation, Hypokalemia Chronic back pain Qualifiers: Back pain location: low back pain Back pain laterality: bilateral Sciatica presence: without sciatica Qualified Code(s): M54.50 - Low back pain, unspecified; G89.29 - Other chronic pain Abdominal pain Qualifiers: Abdominal location: epigastric Qualified Code(s): R10.13 - Epigastric pain - Discharge Information Instructions: Constipation, Adult, [id number], Chronic Back Pain, [id number], Abdominal Bloating, Hypokalemia Referrals: PCP,None [Primary Care Provider] - Forms: ED Department Discharge Care Plan Goals: I would recommend taking Maalox, Gaviscon, Di-Gel or Gas-X for the excessive flatus. You also may want to do an laxative like Ex-Lax, correctable, or prune juice to help move the bowels. Contact your primary provider in the morning to refill your chronic pain medications as you are limited to who can do this by your pain contract. Sepsis Event Note (ED) - Focused Exam Vital Signs: Vital Signs Temp Pulse Resp BP Pulse Ox 01/29/21 16:20 36.7 C 114 H 20 107/68 99 01/29/21 16:15 36.7 C 114 H 20 107/68 99 - Problem List & Annotations (1) Abdominal pain SNOMED Code(s): 22564290 Code(s): R10.9 - UNSPECIFIED ABDOMINAL PAIN Status: Acute Priority: Medium Current Visit: Yes Qualifiers: Abdominal location: epigastric Qualified Code(s): R10.13 - Epigastric pain (2) Chronic back pain SNOMED Code(s): 913231931 Code(s): M54.9 - DORSALGIA, UNSPECIFIED; G89.29 - OTHER CHRONIC PAIN Status : Acute Priority: Medium Current Visit: Yes Qualifiers: Back pain location: low back pain Back pain laterality: bilateral Sciatica presence: without sciatica Qualified Code(s): M54.50 - Low back pain, unspecified; G89.29 - Other chronic pain (3) Excessive flatus SNOMED Code(s): 80301328 Code(s): R14.3 - FLATULENCE Status: Acute Priority: Medium Current Visit: Yes (4) Hypokalemia SNOMED Code(s): 33259709 Code(s): E87.6 - HYPOKALEMIA Status: Acute Priority: Medium Current Visit: Yes - Problem List Review Problem List Initiated/Reviewed/Updated: Yes - My Orders Last 24 Hours: My Active Orders 01/29/21 18:09 UA W/MICROSCOPIC [URIN] Stat 01/29/21 20:47 Abdomen 2V AP Flat Upright [CR] Stat - Assessment/Plan Last 24 Hours: My Active Orders 01/29/21 18:09 UA W/MICROSCOPIC [URIN] Stat 01/29/21 20:47 Abdomen 2V AP Flat Upright [CR] Stat
[2021-01-29] MEDS ORDERED: HYDROmorphone 1 MG/ML Syringe IVPUSH ONE ×2 (20:07→21:35)
[2021-01-29] MEDS ORDERED: Potassium Chloride 20 MEQ Tab.ER PO ONE (20:35)
[2021-01-29] MEDS ORDERED: Aluminum Hydroxide/Magnesium Hydroxide/Simethicone Susp 30 ML Cup PO STA (21:40)
--- NOTE | 2021-01-30 08:50 | CR ---
Abdomen 2V AP Flat Upright CLINICAL HISTORY: Mid abdominal and back pain FINDINGS: No free air is identified. Small intestinal configuration is nonacute. There is significant stool throughout the colon. IMPRESSION: Moderate fecal retention Nonacute intestinal gas pattern
== END 2021-01-29 22:12 | disposition home or self-care (01) ==
LOC: JP.ED 16:10
DX: K59.01 Slow transit constipation (principal); M54.50 Low back pain, unspecified; G89.29 Other chronic pain; E87.6 Hypokalemia; R14.3 Flatulence; I10 Essential (primary) hypertension; E11.9 Type 2 diabetes mellitus without complications; Z87.891 Personal history of nicotine dependence; Z79.4 Long term (current) use of insulin; Z79.899 Other long term (current) drug therapy
CPT/HCPCS: 36415; 74019; 80053; 83690; 85025; 86140; 96374; 96375; 96376; 99284; A9270; J1170

== ENCOUNTER 2021-09-11 16:21 | Inpatient (IN) | payer MEDICARE ==
[2021-09-11] MEDS ORDERED: Sodium Chloride 0.9% 10 ML Syringe FLUSH PRN (16:29)
[2021-09-11] MEDS ORDERED: Clindamycin Phosphate 900 MG in Sodium Chloride 0.9% 100 ML IV ONE (16:31)
[2021-09-11 17:02] LABS: ESTIMATED GFR 85 mL/min (>60)
[2021-09-11] MEDS ORDERED: Morphine 2 MG/ML SYRINGE IVPUSH ONE (17:39)
[2021-09-11] MEDS ORDERED: Iopamidol 612 MG/ML 100 ML Bottle IV SCH (18:15)
[2021-09-11] MEDS ORDERED: Sodium Chloride 0.9% 75 ML IV SCH (18:15)
[2021-09-11] MEDS ORDERED: Potassium Chloride 20 MEQ Tab.ER PO ONE (19:35)
[2021-09-11] MEDS ORDERED: 50% Dextrose in Water 50 ML Syringe IVPUSH PRN (21:12)
[2021-09-11] MEDS ORDERED: Glucagon,Human Recombinant 1 MG Vial IM PRN (21:12)
[2021-09-11] MEDS ORDERED: LORazepam 0.5 MG Tab PO SCH (21:15)
[2021-09-11] MEDS: Potassium Chloride 10 MEQ Cap.ER PO SCH (22:04)
[2021-09-11] MEDS: oxyCODONE 5 MG Tab PO PRN (22:04)
[2021-09-11 22:06] LABS: CORONAVIRUS COVID-19 NAA NEGATIVE (NEGATIVE)
[2021-09-12] MEDS ORDERED: Sodium Chloride 0.9% 1,000 ML IV SCH (00:47)
[2021-09-12] MEDS ORDERED: Sodium Chloride 0.9% 10 ML Syringe FLUSH PRN (00:47)
[2021-09-12] MEDS ORDERED: Potassium Chloride 20 MEQ Tab.ER PO ONE (00:47)
[2021-09-12] MEDS ORDERED: 50% Dextrose in Water 50 ML Syringe IV PRN (00:47)
[2021-09-12] MEDS ORDERED: Glucose Gel 15 GM in 37.5 GM Tube PO PRN (00:47)
[2021-09-12] MEDS ORDERED: Ondansetron 4 MG/2 ML SDV IV PRN (00:47)
[2021-09-12] MEDS ORDERED: Albuterol 0.083% 2.5 MG/3 ML Neb Soln NEB PRN (00:47)
[2021-09-12] MEDS ORDERED: Enoxaparin 40 MG/0.4 ML Syringe SUBCUT SCH (00:47)
[2021-09-12] MEDS ORDERED: Vancomycin 1 GM SDV IV SCH (00:47)
[2021-09-12] MEDS ORDERED: Piperacillin/Tazobactam 3.375 GM in Sodium Chloride 0.9% 50 ML IV SCH (01:00)
[2021-09-12] MEDS ORDERED: Water For Injection, Sterile 40 ML ONE (01:33)
[2021-09-12] MEDS: Acetaminophen 325 MG Tab PO PRN ×2 (01:56→06:38)
[2021-09-12] MEDS: oxyCODONE 5 MG Tab PO PRN ×5 (02:04→19:13)
[2021-09-12] MEDS: Albuterol 8 GM Inhaler INH PRN (02:11)
[2021-09-12 05:18] LABS: ESTIMATED GFR 68 mL/min (>60)
[2021-09-12] MEDS: Codeine/guaiFENesin 10-100 MG/5 ML Syrup 5 ML Cup PO PRN ×4 (06:38→20:47)
[2021-09-12] MEDS: Potassium Chloride 10 MEQ Cap.ER PO SCH ×4 (06:41→21:03)
[2021-09-12] MEDS: Albuterol/Ipratropium 3.0-0.5 MG/3 ML Neb Soln NEB PRN ×2 (08:31→19:17)
[2021-09-12] MEDS: Insulin Lispro 100 Unit/ML 3 ML KwikPen SUBCUT SCH ×7 (08:37→21:52)
[2021-09-12] MEDS: Bumetanide 1 MG Tab PO SCH ×2 (08:41→14:20)
[2021-09-12] MEDS: Hydrochlorothiazide 25 MG Tab PO SCH (08:41)
[2021-09-12] MEDS: predniSONE 10 MG Tab PO SCH ×2 (08:41→20:39)
[2021-09-12] MEDS: Piperacillin/Tazobactam/Dext 3.375 GM in Premix Bag 1 BAG IV SCH ×3 (08:44→19:10)
[2021-09-12] MEDS: Insulin Glargine,Human Rec. Analog 100 Units/ML 3 ML Pen SUBCUT SCH (08:45)
[2021-09-12] MEDS ORDERED: Insulin Lispro 100 Unit/ML 3 ML KwikPen SUBCUT SCH (09:00)
[2021-09-12] MEDS: LORazepam 0.5 MG Tab PO PRN ×2 (10:42→19:16)
[2021-09-12] MEDS: Pantoprazole 40 MG Tab.CR PO SCH (16:34)
[2021-09-12] MEDS: metFORMIN 500 MG Tab PO SCH (17:17)
[2021-09-12] MEDS: Enoxaparin 40 MG/0.4 ML Syringe SUBCUT SCH (20:39)
[2021-09-13] MEDS: Albuterol 8 GM Inhaler INH PRN ×3 (00:03→10:56)
[2021-09-13] MEDS: Codeine/guaiFENesin 10-100 MG/5 ML Syrup 5 ML Cup PO PRN ×5 (01:05→20:27)
[2021-09-13] MEDS: Piperacillin/Tazobactam/Dext 3.375 GM in Premix Bag 1 BAG IV SCH ×4 (01:20→19:34)
[2021-09-13] MEDS: Albuterol/Ipratropium 3.0-0.5 MG/3 ML Neb Soln NEB PRN ×3 (03:26→09:40)
[2021-09-13] MEDS: LORazepam 0.5 MG Tab PO PRN ×4 (03:42→20:26)
[2021-09-13] MEDS: oxyCODONE 5 MG Tab PO PRN ×6 (04:04→23:57)
[2021-09-13] MEDS: Potassium Chloride 10 MEQ Cap.ER PO SCH ×4 (05:19→22:36)
[2021-09-13] MEDS: Acetaminophen 325 MG Tab PO PRN ×4 (06:39→20:26)
[2021-09-13] MEDS: Bumetanide 1 MG Tab PO SCH ×2 (08:26→14:10)
[2021-09-13] MEDS: Pantoprazole 40 MG Tab.CR PO SCH ×2 (08:26→15:49)
[2021-09-13] MEDS: metFORMIN 500 MG Tab PO SCH ×2 (08:27→17:36)
[2021-09-13] MEDS: Insulin Lispro 100 Unit/ML 3 ML KwikPen SUBCUT SCH ×7 (08:32→22:35)
[2021-09-13] MEDS: Hydrochlorothiazide 25 MG Tab PO SCH (08:33)
[2021-09-13] MEDS: Insulin Glargine,Human Rec. Analog 100 Units/ML 3 ML Pen SUBCUT SCH (08:34)
[2021-09-13] MEDS: predniSONE 10 MG Tab PO SCH ×2 (08:34→20:28)
[2021-09-13] MEDS ORDERED: Albuterol 8 GM Inhaler INH PRN (12:31)
[2021-09-13] MEDS: Enoxaparin 40 MG/0.4 ML Syringe SUBCUT SCH (20:27)
[2021-09-14] MEDS: Codeine/guaiFENesin 10-100 MG/5 ML Syrup 5 ML Cup PO PRN ×4 (01:06→13:42)
[2021-09-14] MEDS: Piperacillin/Tazobactam/Dext 3.375 GM in Premix Bag 1 BAG IV SCH ×2 (01:06→07:42)
[2021-09-14] MEDS: oxyCODONE 5 MG Tab PO PRN ×4 (04:08→18:01)
[2021-09-14] MEDS: LORazepam 0.5 MG Tab PO PRN ×4 (04:09→18:41)
[2021-09-14] MEDS: Potassium Chloride 10 MEQ Cap.ER PO SCH ×4 (05:20→21:03)
[2021-09-14] MEDS: Bumetanide 1 MG Tab PO SCH ×2 (07:36→13:38)
[2021-09-14] MEDS: metFORMIN 500 MG Tab PO SCH ×2 (07:37→16:23)
[2021-09-14] MEDS: Pantoprazole 40 MG Tab.CR PO SCH ×2 (07:37→16:22)
[2021-09-14] MEDS: Insulin Lispro 100 Unit/ML 3 ML KwikPen SUBCUT SCH ×7 (07:37→21:32)
[2021-09-14] MEDS: predniSONE 10 MG Tab PO SCH ×2 (08:23→15:28)
[2021-09-14] MEDS: Hydrochlorothiazide 25 MG Tab PO SCH (08:23)
[2021-09-14] MEDS: Insulin Glargine,Human Rec. Analog 100 Units/ML 3 ML Pen SUBCUT SCH (08:26)
[2021-09-14] MEDS: Albuterol/Ipratropium 3.0-0.5 MG/3 ML Neb Soln NEB PRN (08:55)
[2021-09-14] MEDS: Enoxaparin 40 MG/0.4 ML Syringe SUBCUT SCH (21:03)
[2021-09-15] MEDS: Codeine/guaiFENesin 10-100 MG/5 ML Syrup 5 ML Cup PO PRN ×4 (01:33→23:28)
[2021-09-15] MEDS: oxyCODONE 5 MG Tab PO PRN ×5 (01:34→21:45)
[2021-09-15] MEDS: LORazepam 0.5 MG Tab PO PRN ×4 (03:19→20:10)
[2021-09-15] MEDS: Potassium Chloride 10 MEQ Cap.ER PO SCH ×4 (05:33→21:41)
[2021-09-15] MEDS: Insulin Lispro 100 Unit/ML 3 ML KwikPen SUBCUT SCH ×7 (08:19→21:41)
[2021-09-15] MEDS: Bumetanide 1 MG Tab PO SCH ×2 (08:36→14:39)
[2021-09-15] MEDS: Pantoprazole 40 MG Tab.CR PO SCH ×2 (08:37→17:38)
[2021-09-15] MEDS: predniSONE 10 MG Tab PO SCH ×2 (08:37→14:39)
[2021-09-15] MEDS: metFORMIN 500 MG Tab PO SCH ×2 (08:38→17:38)
[2021-09-15] MEDS: Hydrochlorothiazide 25 MG Tab PO SCH (08:42)
[2021-09-15] MEDS: Insulin Glargine,Human Rec. Analog 100 Units/ML 3 ML Pen SUBCUT SCH (08:42)
[2021-09-15] MEDS: Albuterol/Ipratropium 3.0-0.5 MG/3 ML Neb Soln NEB PRN (20:10)
[2021-09-15] MEDS: Enoxaparin 40 MG/0.4 ML Syringe SUBCUT SCH (21:41)
[2021-09-16] MEDS: oxyCODONE 5 MG Tab PO PRN ×3 (02:57→11:39)
[2021-09-16] MEDS: LORazepam 0.5 MG Tab PO PRN ×2 (03:58→10:03)
[2021-09-16] MEDS: Codeine/guaiFENesin 10-100 MG/5 ML Syrup 5 ML Cup PO PRN ×2 (05:14→12:51)
[2021-09-16] MEDS: Potassium Chloride 10 MEQ Cap.ER PO SCH ×2 (06:18→10:04)
[2021-09-16] MEDS: Insulin Lispro 100 Unit/ML 3 ML KwikPen SUBCUT SCH ×4 (07:38→12:51)
[2021-09-16] MEDS: metFORMIN 500 MG Tab PO SCH (07:39)
[2021-09-16] MEDS: Bumetanide 1 MG Tab PO SCH ×2 (07:40→13:28)
[2021-09-16] MEDS: Pantoprazole 40 MG Tab.CR PO SCH (07:40)
[2021-09-16] MEDS: predniSONE 10 MG Tab PO SCH ×2 (07:40→13:27)
[2021-09-16 08:51] VITALS: BP 131/84; PULSE 102
[2021-09-16] MEDS: Insulin Glargine,Human Rec. Analog 100 Units/ML 3 ML Pen SUBCUT SCH (09:59)
[2021-09-16] MEDS: Hydrochlorothiazide 25 MG Tab PO SCH (10:04)
== END 2021-09-16 15:30 | disposition home health service (06) | DRG 638 ==
LOC: JP.ED 16:21 → JP.2SS 20:12
PROVIDERS: ADMIT Hospitalist; ATTEND Hospitalist
DX: E11.628 Type 2 diabetes mellitus with other skin complications (principal); R10.9 Unspecified abdominal pain; L03.116 Cellulitis of left lower limb; K76.6 Portal hypertension; E87.6 Hypokalemia; E66.9 Obesity, unspecified; K74.60 Unspecified cirrhosis of liver; K29.70 Gastritis, unspecified, without bleeding; I10 Essential (primary) hypertension; Z20.822 Contact with and (suspected) exposure to COVID-19; J43.1 Panlobular emphysema; E11.9 Type 2 diabetes mellitus without complications; Z79.51 Long term (current) use of inhaled steroids; Z79.4 Long term (current) use of insulin; Z79.899 Other long term (current) drug therapy
CPT/HCPCS: 0241U; 36415; 74177; 80053; 80202; 82565; 82947; 83605; 83735; 85025; 86140; 87040; 93005; 93010; 94640; 96365; 96375; 97110-GP; 97161-GP; 99222; 99232; 99238; 99284; 99285-25; A9270-GY; J1650; J1815; J1815-GY; J2270; J2543; J3370; J3490; J7030; J7050; J7512; J7620; Q9967; U0002

== ENCOUNTER 2021-10-07 22:03 | Inpatient (IN) | payer MEDICARE ==
[2021-10-07] MEDS ORDERED: Sodium Chloride 0.9% 10 ML Syringe FLUSH PRN ×2 (22:38→22:45)
[2021-10-08] MEDS ORDERED: Albuterol/Ipratropium 3.0-0.5 MG/3 ML Neb Soln NEB PRN (00:31)
[2021-10-08] MEDS ORDERED: Potassium Chloride 10 MEQ Cap.ER PO SCH (00:31)
[2021-10-08] MEDS ORDERED: Docusate Sodium 100 MG Cap PO PRN (00:31)
[2021-10-08] MEDS ORDERED: Enoxaparin 30 MG/0.3 ML Syringe SUBCUT SCH (00:31)
[2021-10-08] MEDS ORDERED: Non-Formulary Medication 1 Each (Naloxone Hcl [Narcan] 4 MG Spray) NAS SCH (00:31)
[2021-10-08] MEDS ORDERED: Bisacodyl 5 MG Tab PO PRN (00:31)
[2021-10-08] MEDS ORDERED: Vancomycin 0.5 GM in Sodium Chloride 0.9% 100 ML IV ONE (01:00)
[2021-10-08] MEDS: Acetaminophen 325 MG Tab PO PRN (01:11)
[2021-10-08] MEDS: oxyCODONE 5 MG Tab PO PRN ×4 (01:12→21:02)
[2021-10-08] MEDS: LORazepam 0.5 MG Tab PO SCH ×6 (01:12→21:03)
[2021-10-08] MEDS: Sodium Chloride 0.9% 1,000 ML IV SCH ×3 (02:07→19:56)
[2021-10-08] MEDS: guaiFENesin 600 MG Tab.ER PO PRN ×2 (04:39→21:12)
[2021-10-08] MEDS: guaiFENesin 100 MG/5 ML Soln 10 ML UD Cup PO PRN ×2 (06:19→21:07)
[2021-10-08] MEDS: Albuterol 0.083% 2.5 MG/3 ML Neb Soln NEB PRN ×2 (06:26→11:04)
[2021-10-08] MEDS: Insulin Lispro 100 Unit/ML 3 ML KwikPen SUBCUT SCH ×7 (07:55→20:52)
[2021-10-08] MEDS: Ferrous Sulfate 325 MG Tab PO SCH (08:05)
[2021-10-08] MEDS: Pantoprazole 40 MG Tab.CR PO SCH (08:05)
[2021-10-08] MEDS: predniSONE 10 MG Tab PO SCH ×2 (08:05→21:02)
[2021-10-08] MEDS: Hydrochlorothiazide 25 MG Tab PO SCH (08:05)
[2021-10-08] MEDS: Bumetanide 1 MG Tab PO SCH ×2 (08:05→21:02)
[2021-10-08] MEDS: Potassium Chloride 20 MEQ Tab.ER PO SCH ×2 (08:05→17:25)
[2021-10-08] MEDS: Insulin Glargine,Human Rec. Analog 100 Units/ML 3 ML Pen SUBCUT SCH (08:06)
[2021-10-08] MEDS: Acetaminophen 325 MG Tab PO SCH ×3 (08:21→21:02)
[2021-10-08] MEDS ORDERED: Potassium Chloride 20 MEQ, Lidocaine 1% 2 ML in Sodium Chloride 0.9% 100 ML IV ONE (17:00)
[2021-10-08] MEDS: Enoxaparin 40 MG/0.4 ML Syringe SUBCUT SCH (21:03)
[2021-10-09] MEDS: LORazepam 0.5 MG Tab PO SCH ×6 (00:47→20:49)
[2021-10-09] MEDS: Acetaminophen 325 MG Tab PO SCH ×4 (02:16→20:48)
[2021-10-09] MEDS: guaiFENesin 100 MG/5 ML Soln 10 ML UD Cup PO PRN ×3 (03:59→19:33)
[2021-10-09] MEDS: oxyCODONE 5 MG Tab PO PRN ×3 (03:59→20:55)
[2021-10-09] MEDS: Sodium Chloride 0.9% 1,000 ML IV SCH ×2 (04:00→16:01)
[2021-10-09] MEDS ORDERED: Potassium Chloride 20 MEQ in Premix Bag 1 BAG IV ONE ×2 (05:27→07:30)
[2021-10-09] MEDS ORDERED: Lidocaine 1% 5 ML VIAL INJECT ONE (05:30)
[2021-10-09] MEDS: Insulin Lispro 100 Unit/ML 3 ML KwikPen SUBCUT SCH ×7 (07:54→20:59)
[2021-10-09] MEDS: Pantoprazole 40 MG Tab.CR PO SCH (08:10)
[2021-10-09] MEDS: Potassium Chloride 20 MEQ Tab.ER PO SCH ×2 (08:10→17:27)
[2021-10-09] MEDS: Hydrochlorothiazide 25 MG Tab PO SCH (08:12)
[2021-10-09] MEDS: Ferrous Sulfate 325 MG Tab PO SCH (08:12)
[2021-10-09] MEDS: Bumetanide 1 MG Tab PO SCH (08:12)
[2021-10-09] MEDS: Insulin Glargine,Human Rec. Analog 100 Units/ML 3 ML Pen SUBCUT SCH (08:13)
[2021-10-09] MEDS: predniSONE 10 MG Tab PO SCH ×2 (08:13→15:48)
[2021-10-09] MEDS ORDERED: Potassium Chloride 20 MEQ, Lidocaine 1% 2 ML in Sodium Chloride 0.9% 100 ML IV ONE (08:15)
[2021-10-09] MEDS ORDERED: Albuterol 8 GM Inhaler INH PRN (10:01)
[2021-10-09] MEDS: Bumetanide 1 MG/4 ML MDV IVPUSH SCH (14:46)
[2021-10-09] MEDS: Enoxaparin 40 MG/0.4 ML Syringe SUBCUT SCH (20:49)
[2021-10-09] MEDS ORDERED: Bumetanide 2.5 MG/10 ML MDV IVPUSH SCH (21:00)
[2021-10-10] MEDS: LORazepam 0.5 MG Tab PO SCH ×6 (00:26→21:19)
[2021-10-10] MEDS: oxyCODONE 5 MG Tab PO PRN ×6 (01:07→22:20)
[2021-10-10] MEDS: Acetaminophen 325 MG Tab PO SCH ×2 (01:08→08:01)
[2021-10-10] MEDS: guaiFENesin 100 MG/5 ML Soln 10 ML UD Cup PO PRN ×5 (05:26→22:21)
[2021-10-10] MEDS: Pantoprazole 40 MG Tab.CR PO SCH (07:54)
[2021-10-10] MEDS: Insulin Lispro 100 Unit/ML 3 ML KwikPen SUBCUT SCH ×7 (07:59→21:33)
[2021-10-10] MEDS: Potassium Chloride 20 MEQ Tab.ER PO SCH ×2 (08:00→16:45)
[2021-10-10] MEDS: predniSONE 10 MG Tab PO SCH ×2 (08:00→16:45)
[2021-10-10] MEDS: Ferrous Sulfate 325 MG Tab PO SCH (08:01)
[2021-10-10] MEDS: Hydrochlorothiazide 25 MG Tab PO SCH (08:01)
[2021-10-10] MEDS: Insulin Glargine,Human Rec. Analog 100 Units/ML 3 ML Pen SUBCUT SCH (08:02)
[2021-10-10] MEDS: Bumetanide 1 MG/4 ML MDV IVPUSH SCH (08:34)
[2021-10-10] MEDS: Albuterol/Ipratropium 3.0-0.5 MG/3 ML Neb Soln NEB SCH ×3 (10:49→21:19)
[2021-10-10] MEDS: Bumetanide 1 MG Tab PO SCH (15:38)
[2021-10-10] MEDS: Enoxaparin 40 MG/0.4 ML Syringe SUBCUT SCH (21:19)
[2021-10-11] MEDS: LORazepam 0.5 MG Tab PO SCH ×6 (00:40→20:32)
[2021-10-11] MEDS: oxyCODONE 5 MG Tab PO PRN ×5 (04:31→22:56)
[2021-10-11] MEDS: guaiFENesin 100 MG/5 ML Soln 10 ML UD Cup PO PRN ×5 (04:31→22:56)
[2021-10-11] MEDS: Albuterol/Ipratropium 3.0-0.5 MG/3 ML Neb Soln NEB SCH ×4 (07:05→21:58)
[2021-10-11] MEDS: Insulin Lispro 100 Unit/ML 3 ML KwikPen SUBCUT SCH ×8 (07:15→21:58)
[2021-10-11] MEDS: predniSONE 10 MG Tab PO SCH ×2 (07:33→16:56)
[2021-10-11] MEDS: Pantoprazole 40 MG Tab.CR PO SCH (07:33)
[2021-10-11] MEDS: Bumetanide 1 MG Tab PO SCH ×2 (07:33→14:28)
[2021-10-11] MEDS: Hydrochlorothiazide 25 MG Tab PO SCH (08:31)
[2021-10-11] MEDS: Ferrous Sulfate 325 MG Tab PO SCH (08:31)
[2021-10-11] MEDS: Insulin Glargine,Human Rec. Analog 100 Units/ML 3 ML Pen SUBCUT SCH (08:33)
[2021-10-11] MEDS: Potassium Chloride 20 MEQ Tab.ER PO SCH (16:57)
[2021-10-11] MEDS: Sulfamethoxazole/Trimethoprim 800-160 MG Tab PO SCH (20:32)
[2021-10-11] MEDS: Enoxaparin 40 MG/0.4 ML Syringe SUBCUT SCH (20:32)
[2021-10-12] MEDS: LORazepam 0.5 MG Tab PO SCH ×6 (00:57→21:18)
[2021-10-12] MEDS: oxyCODONE 5 MG Tab PO PRN ×5 (03:12→21:18)
[2021-10-12] MEDS: guaiFENesin 100 MG/5 ML Soln 10 ML UD Cup PO PRN ×3 (03:12→15:42)
[2021-10-12] MEDS: Albuterol/Ipratropium 3.0-0.5 MG/3 ML Neb Soln NEB SCH ×4 (07:05→21:18)
[2021-10-12] MEDS: Pantoprazole 40 MG Tab.CR PO SCH (07:35)
[2021-10-12] MEDS: Bumetanide 1 MG Tab PO SCH ×2 (07:38→14:06)
[2021-10-12] MEDS: Insulin Lispro 100 Unit/ML 3 ML KwikPen SUBCUT SCH ×7 (07:57→21:12)
[2021-10-12] MEDS: predniSONE 10 MG Tab PO SCH ×2 (08:59→16:44)
[2021-10-12] MEDS: Ferrous Sulfate 325 MG Tab PO SCH (08:59)
[2021-10-12] MEDS: Hydrochlorothiazide 25 MG Tab PO SCH (09:00)
[2021-10-12] MEDS: Sulfamethoxazole/Trimethoprim 800-160 MG Tab PO SCH ×2 (09:02→21:19)
[2021-10-12] MEDS: Insulin Glargine,Human Rec. Analog 100 Units/ML 3 ML Pen SUBCUT SCH (09:06)
[2021-10-12] MEDS ORDERED: Naloxone 0.4 MG/ML SDV IVPUSH PRN (11:26)
[2021-10-12] MEDS: guaiFENesin 600 MG Tab.ER PO PRN (15:46)
[2021-10-12] MEDS: Potassium Chloride 20 MEQ Tab.ER PO SCH (16:44)
[2021-10-12] MEDS: Enoxaparin 40 MG/0.4 ML Syringe SUBCUT SCH (21:19)
[2021-10-13] MEDS: LORazepam 0.5 MG Tab PO SCH ×6 (00:56→21:02)
[2021-10-13] MEDS: Acetaminophen 325 MG Tab PO PRN (00:56)
[2021-10-13] MEDS: oxyCODONE 5 MG Tab PO PRN ×5 (02:21→20:49)
[2021-10-13] MEDS: guaiFENesin 100 MG/5 ML Soln 10 ML UD Cup PO PRN (02:25)
[2021-10-13 05:21] LABS: ESTIMATED GFR 75 mL/min (>60)
[2021-10-13] MEDS: Albuterol/Ipratropium 3.0-0.5 MG/3 ML Neb Soln NEB SCH ×4 (07:16→21:02)
[2021-10-13] MEDS: Bumetanide 1 MG Tab PO SCH ×2 (07:29→14:14)
[2021-10-13] MEDS: predniSONE 10 MG Tab PO SCH ×2 (07:30→16:31)
[2021-10-13] MEDS: Pantoprazole 40 MG Tab.CR PO SCH (07:31)
[2021-10-13] MEDS: guaiFENesin 600 MG Tab.ER PO PRN (07:39)
[2021-10-13] MEDS: Insulin Lispro 100 Unit/ML 3 ML KwikPen SUBCUT SCH ×7 (07:42→21:04)
[2021-10-13] MEDS: Ferrous Sulfate 325 MG Tab PO SCH (08:42)
[2021-10-13] MEDS: Hydrochlorothiazide 25 MG Tab PO SCH (08:43)
[2021-10-13] MEDS: Sulfamethoxazole/Trimethoprim 800-160 MG Tab PO SCH ×2 (08:44→21:02)
[2021-10-13] MEDS: Insulin Glargine,Human Rec. Analog 100 Units/ML 3 ML Pen SUBCUT SCH (08:48)
[2021-10-13] MEDS ORDERED: Potassium Chloride Riders 40 MEQ in Premix Bag 1 BAG IV ONE (09:22)
[2021-10-13] MEDS: Codeine/guaiFENesin 10-100 MG/5 ML Syrup 5 ML Cup PO PRN ×3 (10:31→23:05)
[2021-10-13] MEDS: Clindamycin HCl 150 MG Cap PO SCH ×2 (11:06→17:35)
[2021-10-13] MEDS: Potassium Chloride 20 MEQ, Lidocaine 1% 2 ML in Sodium Chloride 0.9% 100 ML IV SCH ×2 (11:07→13:41)
[2021-10-13] MEDS: Potassium Chloride 20 MEQ Tab.ER PO SCH (16:30)
[2021-10-13] MEDS: Enoxaparin 40 MG/0.4 ML Syringe SUBCUT SCH (21:02)
[2021-10-14] MEDS: LORazepam 0.5 MG Tab PO SCH ×4 (00:39→12:05)
[2021-10-14] MEDS: oxyCODONE 5 MG Tab PO PRN ×2 (00:53→08:10)
[2021-10-14] MEDS: Clindamycin HCl 150 MG Cap PO SCH ×2 (04:12→10:47)
[2021-10-14 05:12] LABS: ESTIMATED GFR 68 mL/min (>60)
[2021-10-14] MEDS: Codeine/guaiFENesin 10-100 MG/5 ML Syrup 5 ML Cup PO PRN ×2 (05:33→12:05)
[2021-10-14] MEDS: Bumetanide 1 MG Tab PO SCH (08:05)
[2021-10-14] MEDS: Pantoprazole 40 MG Tab.CR PO SCH (08:06)
[2021-10-14] MEDS: predniSONE 10 MG Tab PO SCH (08:07)
[2021-10-14] MEDS: Ferrous Sulfate 325 MG Tab PO SCH (08:08)
[2021-10-14] MEDS: Hydrochlorothiazide 25 MG Tab PO SCH (08:08)
[2021-10-14] MEDS: Sulfamethoxazole/Trimethoprim 800-160 MG Tab PO SCH (08:09)
[2021-10-14] MEDS: Insulin Lispro 100 Unit/ML 3 ML KwikPen SUBCUT SCH ×4 (08:18→11:49)
[2021-10-14] MEDS: Insulin Glargine,Human Rec. Analog 100 Units/ML 3 ML Pen SUBCUT SCH (08:20)
[2021-10-14] MEDS: Albuterol/Ipratropium 3.0-0.5 MG/3 ML Neb Soln NEB SCH (10:42)
== END 2021-10-14 14:30 | disposition home or self-care (01) | DRG 638 ==
LOC: JP.ED 22:03 → JP.MS 10-08 00:16
PROVIDERS: ADMIT Nurse Practitioner; ATTEND Hospitalist
DX: E11.628 Type 2 diabetes mellitus with other skin complications (principal); L03.116 Cellulitis of left lower limb; E66.9 Obesity, unspecified; E11.9 Type 2 diabetes mellitus without complications; I10 Essential (primary) hypertension; R09.02 Hypoxemia; J43.9 Emphysema, unspecified; I27.20 Pulmonary hypertension, unspecified; J43.1 Panlobular emphysema; K59.09 Other constipation; J84.10 Pulmonary fibrosis, unspecified; R06.02 Shortness of breath; M54.50 Low back pain, unspecified; Z66 Do not resuscitate; Z20.822 Contact with and (suspected) exposure to COVID-19; G89.29 Other chronic pain; E87.6 Hypokalemia; I87.8 Other specified disorders of veins; Z79.52 Long term (current) use of systemic steroids; Z79.4 Long term (current) use of insulin; Z79.899 Other long term (current) drug therapy; Z87.01 Personal history of pneumonia (recurrent); Z99.3 Dependence on wheelchair; Z99.81 Dependence on supplemental oxygen
CPT/HCPCS: 36415; 80048; 81001; 82150; 83605; 83690; 83880; 84145; 85025; 85379; 86140; 87040; 96365; 99284; J3370; J7050; U0002; 80053; 80202; 82803; 82947; 83735; 84132; 85027; 93925; 93970; 94640; 97110-GO; 97110-GP; 97162-GP; 97165-GO; 97530-GP; 97535-GO; 97535-GP; 99222; 99232; 99239; A9270-GY; J1650; J1815; J1815-GY; J2001; J3480; J3490; J7030; J7512; J7620

== ENCOUNTER 2022-08-13 18:39 | Inpatient (IN) | payer MEDICARE ==
[2022-08-13] MEDS ORDERED: oxyCODONE 5 MG Tab PO ONE (20:41)
[2022-08-13 20:48] LABS: BASOPHILS ABSOLUTE AUTO 0.07 K/uL (0.00-0.10); BASOPHILS PERCENT AUTO 0.7 % (0.1-1.3); EOSINOPHILS ABSOLUTE AUTO 0.88 K/uL (0.00-0.40); HEMATOCRIT 40.1 % (38.4-49.7); HEMOGLOBIN 13.6 g/dL (12.9-16.9); IMMATURE GRAN ABSOLUTE AUTO 0.11 K/uL (0.00-0.23); IMMATURE GRAN PERCENT AUTO 1.1 % (0.0-0.7); LYMPHOCYTES ABSOLUTE AUTO 2.27 K/uL (0.8-3.3); LYMPHOCYTES PERCENT AUTO 23.1 % (11.4-47.7); MEAN CORPUSCULAR HEMOGLOBIN 32.3 pg (31.6-35.5); MEAN CORPUSCULAR HGB CONC 33.9 g/dL (31.6-35.5); MEAN CORPUSCULAR VOLUME 95.2 fL (81.4-99.0); MONOCYTES ABSOLUTE AUTO 1.55 K/uL (0.20-0.90); MONOCYTES PERCENT AUTO 15.8 % (3.3-12.6); NEUTROPHILS ABSOLUTE AUTO 4.93 K/uL (1.0-7.6); NEUTROPHILS PERCENT AUTO 50.3 % (40.0-78.1); PLATELET COUNT,PLT 142 K/uL (130-375); RED BLOOD CELL COUNT 4.21 M/uL (4.14-5.76); WHITE BLOOD CELL COUNT,WBC 9.8 K/uL (3.2-11.0)
[2022-08-13 21:10] LABS: A/G RATIO 0.8 (1.2-2.2); ALANINE AMINOTRANSFERASE,ALT 40 U/L (12-78); ALBUMIN 2.7 g/dL (3.4-5.0); ALKALINE PHOSPHATASE 82 U/L (46-116); ANION GAP 5.9 mmol/L (5.0-14.0); ASPARTATE AMNIOTRANSFERASE,AST 38 U/L (15-37); BILIRUBIN TOTAL 2.1 mg/dL (0.2-1.0); BLOOD UREA NITROGEN,BUN 14 mg/dL (7-18); CARBON DIOXIDE,CO2 36 mmol/L (21-32); CHLORIDE,CL 92 mmol/L (100-108); EST CRCL DRUG DOSING (CG) 79.48 mL/min; ESTIMATED GFR 84 mL/min (>60); GLUCOSE RANDOM 172 mg/dL (74-106); POTASSIUM,K 3.9 mmol/L (3.6-5.2); PROTEIN TOTAL,TP 6.3 g/dL (6.4-8.2); SODIUM,NA 130 mmol/L (140-148)
[2022-08-13] MEDS ORDERED: Albuterol/Ipratropium 3.0-0.5 MG/3 ML Neb Soln NEB ONE (21:14)
[2022-08-13] MEDS ORDERED: Sodium Chloride 0.9% 10 ML Syringe FLUSH PRN (22:26)
[2022-08-13] MEDS ORDERED: Piperacillin/Tazobactam 3.375 GM in Sodium Chloride 0.9% 50 ML IV SCH (22:30)
[2022-08-14] MEDS ORDERED: Sodium Chloride 0.9% 1,000 ML IV SCH (00:23)
[2022-08-14] MEDS ORDERED: Morphine 2 MG/ML SYRINGE IVPUSH PRN (00:23)
[2022-08-14] MEDS ORDERED: Ondansetron 4 MG Tab.DIS PO PRN (00:23)
[2022-08-14] MEDS ORDERED: Acetaminophen 325 MG Tab PO PRN (00:23)
[2022-08-14] MEDS ORDERED: Albuterol 0.083% 2.5 MG/3 ML Neb Soln NEB PRN (00:23)
[2022-08-14] MEDS ORDERED: Non-Formulary Medication 1 Each (Naloxone Hcl [Narcan] 4 MG Spray) NS SCH (00:23)
[2022-08-14] MEDS ORDERED: Ondansetron 4 MG/2 ML SDV IV PRN (00:23)
[2022-08-14] MEDS ORDERED: Docusate Sodium 100 MG Cap PO PRN (00:23)
[2022-08-14] MEDS ORDERED: Bisacodyl 5 MG Tab PO PRN (00:23)
[2022-08-14] MEDS ORDERED: oxyCODONE 5 MG Tab PO PRN (00:39)
[2022-08-14] MEDS ORDERED: Nystatin Topical Powder 15 GM Bottle TOP SCH ×2 (01:00→07:06)
[2022-08-14] MEDS: LORazepam 0.5 MG Tab PO SCH ×6 (01:10→21:20)
[2022-08-14] MEDS: Piperacillin/Tazobactam 3.375 GM in Sodium Chloride 0.9% 50 ML IV SCH ×3 (01:10→06:04)
[2022-08-14] MEDS: Potassium Chloride 10 MEQ Cap.ER PO SCH ×4 (05:42→21:20)
[2022-08-14] MEDS ORDERED: Albuterol/Ipratropium 3.0-0.5 MG/3 ML Neb Soln NEB SCH (06:00)
[2022-08-14] MEDS: oxyCODONE 5 MG Tab PO PRN ×3 (07:22→21:43)
[2022-08-14] MEDS: Insulin Lispro 100 Unit/ML 3 ML KwikPen SUBCUT SCH ×7 (07:31→22:39)
[2022-08-14] MEDS ORDERED: Bumetanide 1 MG Tab PO SCH ×2 (09:00→16:00)
[2022-08-14] MEDS: Insulin Glargine,Human Rec. Analog 100 Units/ML 3 ML Pen SUBCUT SCH (09:55)
[2022-08-14] MEDS: Nystatin Topical Powder 15 GM Bottle TOP SCH ×2 (09:57→21:49)
[2022-08-14] MEDS: Enoxaparin 40 MG/0.4 ML Syringe SUBCUT SCH (09:57)
[2022-08-14] MEDS: predniSONE 10 MG Tab PO SCH ×2 (09:57→17:04)
[2022-08-14] MEDS: Hydrochlorothiazide 25 MG Tab PO SCH (09:57)
[2022-08-14] MEDS: Clotrimazole 1% Crm 30 GM Tube TOP SCH ×2 (09:58→21:50)
[2022-08-14] MEDS ORDERED: Naloxone 0.4 MG/ML SDV IVPUSH PRN (10:13)
[2022-08-14] MEDS: Albuterol/Ipratropium 3.0-0.5 MG/3 ML Neb Soln NEB SCH ×3 (11:21→21:21)
[2022-08-14] MEDS: Piperacillin/Tazobactam/Dext 3.375 GM in Premix Bag 1 BAG IV SCH ×2 (11:59→17:13)
[2022-08-14] MEDS: Bumetanide 1 MG Tab PO SCH (14:04)
[2022-08-14] MEDS: Acetylcysteine 20% 200 MG/ML 4 ML Nebulizer Soln SDV NEB SCH ×2 (15:02→21:21)
[2022-08-15] MEDS: Piperacillin/Tazobactam/Dext 3.375 GM in Premix Bag 1 BAG IV SCH ×5 (00:16→23:39)
[2022-08-15] MEDS: LORazepam 0.5 MG Tab PO SCH ×6 (02:09→21:15)
[2022-08-15] MEDS: oxyCODONE 5 MG Tab PO PRN ×4 (04:13→21:14)
[2022-08-15 05:32] LABS: CALCIUM 8.6 mg/dL (8.5-10.1); CREATININE 1.2 mg/dL (0.8-1.3); EST CRCL DRUG DOSING (CG) 65.97 mL/min; MAGNESIUM 1.6 mg/dL (1.8-2.4)
[2022-08-15 05:37] LABS: ANION GAP 7.7 mmol/L (5.0-14.0); POTASSIUM,K 2.7 mmol/L (3.6-5.2)
[2022-08-15] MEDS ORDERED: Potassium Chloride 10 MEQ in Premix Bag 2 BAG IV ONE (05:47)
[2022-08-15] MEDS ORDERED: Potassium Chloride 20 MEQ Tab.ER PO ONE ×2 (05:47→20:08)
[2022-08-15] MEDS: Potassium Chloride 10 MEQ Cap.ER PO SCH ×4 (05:54→21:21)
[2022-08-15] MEDS ORDERED: Magnesium Sulfate/Water 2 GM in Premix Bag 1 BAG IV SCH (06:00)
[2022-08-15] MEDS ORDERED: Magnesium Sulfate/Water 2 GM in Premix Bag 3 BAG IV SCH (06:00)
[2022-08-15] MEDS: Albuterol/Ipratropium 3.0-0.5 MG/3 ML Neb Soln NEB SCH ×4 (07:00→21:06)
[2022-08-15] MEDS: Acetylcysteine 20% 200 MG/ML 4 ML Nebulizer Soln SDV NEB SCH ×3 (07:00→21:06)
[2022-08-15] MEDS: Potassium Chloride 10 MEQ in Premix Bag 1 BAG IV SCH ×2 (07:11→08:29)
[2022-08-15] MEDS: Insulin Lispro 100 Unit/ML 3 ML KwikPen SUBCUT SCH ×7 (08:36→21:09)
[2022-08-15] MEDS: Bumetanide 1 MG Tab PO SCH ×2 (08:38→15:01)
[2022-08-15] MEDS: Magnesium Oxide 400 MG Tab PO SCH ×2 (08:38→21:06)
[2022-08-15] MEDS: predniSONE 10 MG Tab PO SCH ×2 (08:38→17:05)
[2022-08-15] MEDS: Hydrochlorothiazide 25 MG Tab PO SCH (08:38)
[2022-08-15] MEDS: Enoxaparin 40 MG/0.4 ML Syringe SUBCUT SCH (08:39)
[2022-08-15] MEDS: Insulin Glargine,Human Rec. Analog 100 Units/ML 3 ML Pen SUBCUT SCH (08:40)
[2022-08-15] MEDS: Nystatin Topical Powder 15 GM Bottle TOP SCH ×2 (08:41→23:33)
[2022-08-15] MEDS: Clotrimazole 1% Crm 30 GM Tube TOP SCH ×2 (08:41→23:33)
[2022-08-15] MEDS: Albuterol 90 MCG/6.7 GM Inhaler INH PRN ×2 (09:02→13:06)
[2022-08-15] MEDS: Magnesium Sulfate/Water 2 GM in Premix Bag 1 BAG IV SCH ×3 (09:56→21:06)
[2022-08-16] MEDS: LORazepam 0.5 MG Tab PO SCH ×6 (03:58→22:24)
[2022-08-16] MEDS: Potassium Chloride 10 MEQ Cap.ER PO SCH ×2 (05:06→10:29)
[2022-08-16] MEDS: oxyCODONE 5 MG Tab PO PRN ×4 (05:06→21:33)
[2022-08-16] MEDS: Piperacillin/Tazobactam/Dext 3.375 GM in Premix Bag 1 BAG IV SCH (05:06)
[2022-08-16 05:09] LABS: CALCIUM 8.5 mg/dL (8.5-10.1); CREATININE 1.3 mg/dL (0.8-1.3); EST CRCL DRUG DOSING (CG) 60.89 mL/min; MAGNESIUM 2.4 mg/dL (1.8-2.4)
[2022-08-16 05:15] LABS: ANION GAP 9.5 mmol/L (5.0-14.0); POTASSIUM,K 2.5 mmol/L (3.6-5.2)
[2022-08-16] MEDS ORDERED: Potassium Chloride 20 MEQ Tab.ER PO ONE ×3 (05:26→16:00)
[2022-08-16] MEDS: Potassium Chloride 10 MEQ in Premix Bag 1 BAG IV SCH ×7 (05:44→19:18)
[2022-08-16] MEDS: Albuterol/Ipratropium 3.0-0.5 MG/3 ML Neb Soln NEB SCH ×4 (07:03→21:41)
[2022-08-16] MEDS: Acetylcysteine 20% 200 MG/ML 4 ML Nebulizer Soln SDV NEB SCH ×3 (07:03→21:41)
[2022-08-16] MEDS: Insulin Lispro 100 Unit/ML 3 ML KwikPen SUBCUT SCH ×7 (08:25→21:28)
[2022-08-16] MEDS: predniSONE 10 MG Tab PO SCH ×2 (08:26→16:59)
[2022-08-16] MEDS: Bumetanide 1 MG Tab PO SCH (08:26)
[2022-08-16] MEDS: Hydrochlorothiazide 25 MG Tab PO SCH (08:27)
[2022-08-16] MEDS: Insulin Glargine,Human Rec. Analog 100 Units/ML 3 ML Pen SUBCUT SCH (08:27)
[2022-08-16] MEDS: Clotrimazole 1% Crm 30 GM Tube TOP SCH ×2 (08:29→21:29)
[2022-08-16] MEDS: Nystatin Topical Powder 15 GM Bottle TOP SCH ×2 (08:30→21:30)
[2022-08-16] MEDS: Enoxaparin 40 MG/0.4 ML Syringe SUBCUT SCH (08:30)
[2022-08-16] MEDS: Magnesium Oxide 400 MG Tab PO SCH ×2 (08:30→21:29)
[2022-08-16] MEDS: Codeine/guaiFENesin 10-100 MG/5 ML Syrup 5 ML Cup PO PRN ×2 (11:23→19:19)
[2022-08-16] MEDS: Amoxicillin/Clavulanate K 875-125 MG Tab PO SCH ×2 (11:23→21:28)
[2022-08-16] MEDS: Potassium Chloride 20 MEQ Tab.ER PO SCH ×2 (16:57→22:24)
[2022-08-16] MEDS ORDERED: Potassium Chloride 20 MEQ Tab.ER PO STA (20:57)
[2022-08-16] MEDS: Albuterol 90 MCG/6.7 GM Inhaler INH PRN (21:42)
[2022-08-17] MEDS: Codeine/guaiFENesin 10-100 MG/5 ML Syrup 5 ML Cup PO PRN ×2 (03:03→08:23)
[2022-08-17] MEDS: LORazepam 0.5 MG Tab PO SCH ×3 (03:03→11:02)
[2022-08-17 06:15] LABS: CALCIUM 8.7 mg/dL (8.5-10.1); CREATININE 1.1 mg/dL (0.8-1.3); EST CRCL DRUG DOSING (CG) 71.96 mL/min; POTASSIUM,K 3.4 mmol/L (3.6-5.2)
[2022-08-17] MEDS: Potassium Chloride 20 MEQ Tab.ER PO SCH ×2 (06:16→11:02)
[2022-08-17 06:18] LABS: ANION GAP 9.4 mmol/L (5.0-14.0)
[2022-08-17] MEDS: Albuterol/Ipratropium 3.0-0.5 MG/3 ML Neb Soln NEB SCH (07:17)
[2022-08-17] MEDS: Acetylcysteine 20% 200 MG/ML 4 ML Nebulizer Soln SDV NEB SCH (07:17)
[2022-08-17] MEDS: Insulin Lispro 100 Unit/ML 3 ML KwikPen SUBCUT SCH ×3 (08:10→12:43)
[2022-08-17] MEDS: Insulin Glargine,Human Rec. Analog 100 Units/ML 3 ML Pen SUBCUT SCH (08:11)
[2022-08-17] MEDS: Hydrochlorothiazide 25 MG Tab PO SCH (08:21)
[2022-08-17] MEDS: predniSONE 10 MG Tab PO SCH (08:21)
[2022-08-17] MEDS: Magnesium Oxide 400 MG Tab PO SCH (08:21)
[2022-08-17] MEDS: Amoxicillin/Clavulanate K 875-125 MG Tab PO SCH (08:21)
[2022-08-17] MEDS: Clotrimazole 1% Crm 30 GM Tube TOP SCH (08:22)
[2022-08-17] MEDS: Enoxaparin 40 MG/0.4 ML Syringe SUBCUT SCH (08:22)
[2022-08-17] MEDS: Nystatin Topical Powder 15 GM Bottle TOP SCH (08:22)
[2022-08-17] MEDS: oxyCODONE 5 MG Tab PO PRN (08:23)
[2022-08-17] MEDS ORDERED: Potassium Chloride 20 MEQ Tab.ER PO ONE (08:30)
[2022-08-17] MEDS ORDERED: Hypromellose 0.3% Ophth Soln 15 ML Bottle EYEBOTH PRN (10:26)
== END 2022-08-17 13:15 | disposition home or self-care (01) | DRG 638 ==
LOC: JP.ED 18:39 → JP.ICU 23:19
PROVIDERS: ADMIT Hospitalist; ATTEND Hospitalist
DX: E11.628 Type 2 diabetes mellitus with other skin complications (principal); E87.1 Hypo-osmolality and hyponatremia; L03.116 Cellulitis of left lower limb; Z20.822 Contact with and (suspected) exposure to COVID-19; M54.50 Low back pain, unspecified; E11.9 Type 2 diabetes mellitus without complications; J44.9 Chronic obstructive pulmonary disease, unspecified; L30.4 Erythema intertrigo; I27.20 Pulmonary hypertension, unspecified; E83.42 Hypomagnesemia; I87.8 Other specified disorders of veins; E11.42 Type 2 diabetes mellitus with diabetic polyneuropathy; G89.29 Other chronic pain; E87.6 Hypokalemia; B37.2 Candidiasis of skin and nail; I25.10 Atherosclerotic heart disease of native coronary artery without angina pectoris; I10 Essential (primary) hypertension; F41.9 Anxiety disorder, unspecified; E66.9 Obesity, unspecified; Z79.891 Long term (current) use of opiate analgesic; Z79.4 Long term (current) use of insulin; Z68.31 Body mass index [BMI] 31.0-31.9, adult; Z99.81 Dependence on supplemental oxygen; Z79.51 Long term (current) use of inhaled steroids; Z79.899 Other long term (current) drug therapy
CPT/HCPCS: 36415; 80053; 83605; 84145; 85025; 94640; 99285 ×2; A9270; U0002; 80048; 82947; 83735; 84132; 99222; 99232; 99238; J1650; J1815; J1815-GY; J2270; J2543; J3370; J3475; J3480; J3490; J7030; J7050; J7512; J7620

== ENCOUNTER 2023-02-17 11:27 | Emergency (ER) | payer MEDICARE ==
[2023-02-17] MEDS ORDERED: Prochlorperazine 10 MG/2 ML SDV IVPUSH ONE (11:54)
[2023-02-17] MEDS ORDERED: Sodium Chloride 0.9% 1,000 ML IV SCH (12:00)
[2023-02-17 12:08] LABS: BASOPHILS ABSOLUTE AUTO 0.05 K/uL (0.00-0.10); BASOPHILS PERCENT AUTO 0.8 % (0.1-1.3); EOSINOPHILS ABSOLUTE AUTO 0.69 K/uL (0.00-0.40); EOSINOPHILS PERCENT AUTO 10.5 % (0.0-5.4); HEMATOCRIT 41.7 % (38.4-49.7); HEMOGLOBIN 13.9 g/dL (12.9-16.9); IMMATURE GRAN ABSOLUTE AUTO 0.08 K/uL (0.00-0.23); IMMATURE GRAN PERCENT AUTO 1.2 % (0.0-0.7); LYMPHOCYTES ABSOLUTE AUTO 1.65 K/uL (0.8-3.3); LYMPHOCYTES PERCENT AUTO 25.1 % (11.4-47.7); MEAN CORPUSCULAR HEMOGLOBIN 30.9 pg (31.6-35.5); MEAN CORPUSCULAR HGB CONC 33.3 g/dL (31.6-35.5); MEAN CORPUSCULAR VOLUME 92.7 fL (81.4-99.0); MONOCYTES ABSOLUTE AUTO 1.08 K/uL (0.20-0.90); MONOCYTES PERCENT AUTO 16.4 % (3.3-12.6); NEUTROPHILS ABSOLUTE AUTO 3.02 K/uL (1.0-7.6); PLATELET COUNT,PLT 180 K/uL (130-375); WHITE BLOOD CELL COUNT,WBC 6.6 K/uL (3.2-11.0)
[2023-02-17 12:09] LABS: BASE EXCESS VENOUS 8.4 mm/L; BICARBONATE,VENOUS 34.4 mmol/L; METHEMOGLOBIN 0.4 %; O2 SATURATION VENOUS 69.6; OXYHEMOGLOBIN 67.2 %; PCO2 VENOUS 54.4 mm/Hg; PH,VENOUS 7.417 (7.350-7.450); PO2 VENOUS 40.7 mm/Hg; TOTAL HEMOGLOBIN 14.2 g/dL (13.5-18.0)
[2023-02-17 12:29] LABS: INR 1.2; PROTHROMBIN TIME 12.4 sec (9.2-10.6)
[2023-02-17 12:35] LABS: INFLUENZA A NAA NEGATIVE (NEGATIVE); INFLUENZA B NAA NEGATIVE (NEGATIVE); RESPIRATORY SYNCYTIAL VIR NAA NEGATIVE (NEGATIVE)
[2023-02-17 12:38] LABS: CORONAVIRUS COVID-19 NAA POSITIVE (NEGATIVE)
[2023-02-17 12:43] LABS: A/G RATIO 0.7 (1.2-2.2); ALANINE AMINOTRANSFERASE,ALT 49 U/L (12-78); ALBUMIN 2.6 g/dL (3.4-5.0); ALKALINE PHOSPHATASE 82 U/L (46-116); ASPARTATE AMNIOTRANSFERASE,AST 72 U/L (15-37); BILIRUBIN TOTAL 2.2 mg/dL (0.2-1.0); BLOOD UREA NITROGEN,BUN 5 mg/dL (7-18); CALCIUM 8.9 mg/dL (8.5-10.1); CARBON DIOXIDE,CO2 33 mmol/L (21-32); CHLORIDE,CL 92 mmol/L (100-108); CREATININE 0.8 mg/dL (0.8-1.3); EST CRCL DRUG DOSING (CG) 95.05 mL/min; ESTIMATED GFR 98 mL/min (>60); GLUCOSE RANDOM 157 mg/dL (74-106); PRO B-TYPE NATRIUR PEPT,BNPPRO 67 pg/mL (5-125); PROTEIN TOTAL,TP 6.5 g/dL (6.4-8.2)
[2023-02-17 12:49] LABS: ANION GAP 9.9 mmol/L (5.0-14.0); SODIUM,NA 132 mmol/L (140-148)
[2023-02-17 12:51] LABS: POTASSIUM,K 2.9 mmol/L (3.6-5.2)
[2023-02-17] MEDS ORDERED: Acetaminophen/oxyCODONE 325-5 MG Tab PO PRN (12:54)
[2023-02-17] MEDS ORDERED: Potassium Chloride 10 MEQ Cap.ER PO ONE (12:55)
[2023-02-17] MEDS ORDERED: NS + KCl 20mEq/L 1,000 ML IV SCH (13:00)
[2023-02-17 14:46] LABS: APPEARANCE,URINE CLEAR (CLEAR); BILIRUBIN,URINE SMALL (NEGATIVE); COLOR,URINE YELLOW (YELLOW); GLUCOSE,URINE NEGATIVE (NEGATIVE); KETONES,URINE NEGATIVE (NEGATIVE); LEUKOCYTE ESTERASE,URINE NEGATIVE (NEGATIVE); NITRITE,URINE NEGATIVE (NEGATIVE); OCCULT BLOOD,URINE NEGATIVE (NEGATIVE); PROTEIN,URINE TRACE mg/dL (NEGATIVE)
[2023-02-17 14:55] LABS: AMPHETAMINES SCREEN, URINE PRESUMPTIVE POSITIVE (NEGATIVE)
[2023-02-17 14:56] LABS: BARBITURATE SCREEN,URINE NEGATIVE (NEGATIVE); BENZODIAZEPINES SCREEN,URINE PRESUMPTIVE POSITIVE (NEGATIVE); METHADONE SCREEN, URINE NEGATIVE (NEGATIVE); METHAMPHETAMINES SCREEN, URINE NEGATIVE (NEGATIVE); OXYCODONE SCREEN,URINE PRESUMPTIVE POSITIVE (NEGATIVE); PROPOXYPHENE SCREEN,URINE NEGATIVE (NEGATIVE); THC SCREEN,URINE 50 NG/ML NEGATIVE (NEGATIVE)
[2023-02-17 14:58] LABS: AMORPHOUS SEDIMENT,URINE NOT SEEN; BACTERIA,URINE FEW; EPITHELIAL CELLS,URINE FEW; MUCUS,URINE NOT SEEN; RBC,URINE NOT SEEN (0-5); WBC,URINE 0-5 (0-5)
[2023-02-17 15:34] LABS: ANION GAP 9.3 mmol/L (5.0-14.0); CALCIUM 8.5 mg/dL (8.5-10.1); CREATININE 0.8 mg/dL (0.8-1.3); EST CRCL DRUG DOSING (CG) 95.05 mL/min; POTASSIUM,K 3.3 mmol/L (3.6-5.2)
== END 2023-02-17 17:13 | disposition home or self-care (01) ==
LOC: JP.ED 11:27
DX: U07.1 COVID-19 (principal); E86.0 Dehydration; E87.6 Hypokalemia; I10 Essential (primary) hypertension; J44.9 Chronic obstructive pulmonary disease, unspecified; E11.9 Type 2 diabetes mellitus without complications; E66.9 Obesity, unspecified; Z79.899 Other long term (current) drug therapy; Z79.4 Long term (current) use of insulin; Z68.35 Body mass index [BMI] 35.0-35.9, adult
CPT/HCPCS: 0241U; 36415; 70450; 71045; 71275; 80048; 80053; 80305; 80307; 81001; 82803; 83605; 83690; 83880; 84145; 84484; 85025; 85379; 85610; 93005; 96361; 96365; 96366; 96375; 99285; A9270; J0780; J3480; J7030

== ENCOUNTER 2023-12-22 19:59 | Emergency (ER) | payer MEDICARE ==
[2023-12-22 20:48] LABS: BASOPHILS ABSOLUTE AUTO 0.06 K/uL (0.00-0.10); BASOPHILS PERCENT AUTO 0.7 % (0.1-1.3); EOSINOPHILS ABSOLUTE AUTO 0.68 K/uL (0.00-0.40); HEMOGLOBIN 12.6 g/dL (12.9-16.9); IMMATURE GRAN ABSOLUTE AUTO 0.04 K/uL (0.00-0.23); IMMATURE GRAN PERCENT AUTO 0.5 % (0.0-0.7); LYMPHOCYTES ABSOLUTE AUTO 1.84 K/uL (0.8-3.3); LYMPHOCYTES PERCENT AUTO 21.6 % (11.4-47.7); MEAN CORPUSCULAR HGB CONC 34.1 g/dL (31.6-35.5); MEAN CORPUSCULAR VOLUME 96.9 fL (81.4-99.0); MONOCYTES ABSOLUTE AUTO 1.02 K/uL (0.20-0.90); NEUTROPHILS ABSOLUTE AUTO 4.88 K/uL (1.0-7.6); NEUTROPHILS PERCENT AUTO 57.2 % (40.0-78.1); PLATELET COUNT,PLT 120 K/uL (130-375); RED BLOOD CELL COUNT 3.82 M/uL (4.14-5.76); WHITE BLOOD CELL COUNT,WBC 8.5 K/uL (3.2-11.0)
[2023-12-22 21:03] LABS: C-REACTIVE PROTEIN 5.68 mg/dL (<0.50); CALCIUM 9.9 mg/dL (8.5-10.1); CREATININE 1.2 mg/dL (0.8-1.3); EST CRCL DRUG DOSING (CG) 51.39 mL/min; POTASSIUM,K 3.8 mmol/L (3.6-5.2)
[2023-12-22 21:11] LABS: ANION GAP 11.8 mmol/L (5.0-14.0)
== END 2023-12-22 21:50 | disposition home or self-care (01) ==
LOC: JP.ED 19:59
DX: L03.116 Cellulitis of left lower limb (principal); J44.9 Chronic obstructive pulmonary disease, unspecified; I10 Essential (primary) hypertension; E11.9 Type 2 diabetes mellitus without complications; E66.9 Obesity, unspecified; Z79.899 Other long term (current) drug therapy; Z88.8 Allergy status to other drugs, medicaments and biological substances; Z68.27 Body mass index [BMI] 27.0-27.9, adult
CPT/HCPCS: 36415; 80048; 83605; 85025; 86140; 99283

== ENCOUNTER 2024-01-09 13:53 | Inpatient (IN) | payer MEDICARE ==
[2024-01-09 14:23] LABS: BASOPHILS ABSOLUTE AUTO 0.05 K/uL (0.00-0.10); BASOPHILS PERCENT AUTO 0.4 % (0.1-1.3); EOSINOPHILS ABSOLUTE AUTO 0.08 K/uL (0.00-0.40); EOSINOPHILS PERCENT AUTO 0.7 % (0.0-5.4); HEMATOCRIT 38.7 % (38.4-49.7); HEMOGLOBIN 12.7 g/dL (12.9-16.9); IMMATURE GRAN ABSOLUTE AUTO 0.09 K/uL (0.00-0.23); IMMATURE GRAN PERCENT AUTO 0.8 % (0.0-0.7); LYMPHOCYTES ABSOLUTE AUTO 0.94 K/uL (0.8-3.3); LYMPHOCYTES PERCENT AUTO 8.4 % (11.4-47.7); MEAN CORPUSCULAR HEMOGLOBIN 33.3 pg (31.6-35.5); MEAN CORPUSCULAR HGB CONC 32.8 g/dL (31.6-35.5); MEAN CORPUSCULAR VOLUME 101.6 fL (81.4-99.0); MONOCYTES ABSOLUTE AUTO 0.67 K/uL (0.20-0.90); NEUTROPHILS ABSOLUTE AUTO 9.35 K/uL (1.0-7.6); NEUTROPHILS PERCENT AUTO 83.7 % (40.0-78.1); PLATELET COUNT,PLT 103 K/uL (130-375); RED BLOOD CELL COUNT 3.81 M/uL (4.14-5.76); WHITE BLOOD CELL COUNT,WBC 11.2 K/uL (3.2-11.0)
[2024-01-09 14:43] LABS: APPEARANCE,URINE CLEAR (CLEAR); BILIRUBIN,URINE NEGATIVE (NEGATIVE); COLOR,URINE YELLOW (YELLOW); GLUCOSE,URINE NEGATIVE (NEGATIVE); KETONES,URINE NEGATIVE (NEGATIVE); LEUKOCYTE ESTERASE,URINE NEGATIVE (NEGATIVE); NITRITE,URINE NEGATIVE (NEGATIVE); OCCULT BLOOD,URINE NEGATIVE (NEGATIVE); PROTEIN,URINE NEGATIVE (NEGATIVE); UROBILINOGEN,URINE 0.2 EU/dL (0.2-1.0)
[2024-01-09 14:47] LABS: A/G RATIO 0.7 (1.2-2.2); ALANINE AMINOTRANSFERASE,ALT 40 U/L (12-78); ALKALINE PHOSPHATASE 121 U/L (46-116); ASPARTATE AMNIOTRANSFERASE,AST 47 U/L (15-37); BILIRUBIN TOTAL 2.5 mg/dL (0.2-1.0); BLOOD UREA NITROGEN,BUN 14 mg/dL (7-18); C-REACTIVE PROTEIN 5.64 mg/dL (<0.50); CALCIUM 9.6 mg/dL (8.5-10.1); CARBON DIOXIDE,CO2 29 mmol/L (21-32); CHLORIDE,CL 99 mmol/L (100-108); EST CRCL DRUG DOSING (CG) 61.67 mL/min; ESTIMATED GFR 84 mL/min (>60); GLUCOSE RANDOM 154 mg/dL (74-106); LACTIC ACID 1.2 mmol/L (0.4-2.0); POTASSIUM,K 5.4 mmol/L (3.6-5.2); PROTEIN TOTAL,TP 7.2 g/dL (6.4-8.2); SODIUM,NA 134 mmol/L (140-148)
[2024-01-09 14:48] LABS: ANION GAP 11.4 mmol/L (5.0-14.0)
[2024-01-09 14:57] LABS: AMORPHOUS SEDIMENT,URINE NOT SEEN; BACTERIA,URINE RARE; EPITHELIAL CELLS,URINE RARE; MUCUS,URINE RARE; RBC,URINE NOT SEEN (0-5); WBC,URINE NOT SEEN (0-5)
[2024-01-09] MEDS: Lactated Ringers 1,000 ML IV SCH (15:02)
[2024-01-09] MEDS: Albuterol/Ipratropium 3.0-0.5 MG/3 ML Neb Soln NEB ONE (15:02)
[2024-01-09] MEDS: Morphine 2 MG/ML SYRINGE IVPUSH ONE ×2 (16:52→19:00)
[2024-01-09] MEDS ORDERED: Naloxone 0.4 MG/ML SDV IVPUSH PRN ×2 (18:53→19:33)
[2024-01-09] MEDS ORDERED: Bumetanide 1 MG Tab PO PRN (19:33)
[2024-01-09] MEDS ORDERED: NALOXONE HCL 4 MG NAS SCH (19:33)
[2024-01-09] MEDS ORDERED: Sodium Chloride 0.9% 1,000 ML IV SCH (19:33)
[2024-01-09] MEDS: Morphine 10 MG/0.5 ML Oral Syringe PO PRN (20:16)
[2024-01-09] MEDS: methylPREDNISolone Sodium Succinate 125 MG/2 ML SDV IVPUSH ONE (20:17)
[2024-01-09] MEDS: Enoxaparin 40 MG/0.4 ML Syringe SUBCUT SCH (20:21)
[2024-01-09] MEDS: cefTRIAXone 1 GM in Sodium Chloride 0.9% 50 ML IV SCH (20:22)
[2024-01-09] MEDS: Insulin Lispro 100 Unit/ML 3 ML KwikPen SUBCUT SCH (21:46)
[2024-01-09] MEDS: Formoterol/Mometasone 100-5 MCG 8.8 GM Inhaler IH SCH (22:12)
[2024-01-09] MEDS: Pregabalin 25 MG Cap PO SCH (22:13)
[2024-01-09] MEDS: Acetaminophen 500 MG Tab PO SCH (22:13)
[2024-01-09] MEDS: Albuterol/Ipratropium 3.0-0.5 MG/3 ML Neb Soln NEB SCH (22:20)
[2024-01-10] MEDS: methylPREDNISolone Sodium Succinate 40 MG/1 ML SDV IVPUSH SCH (01:29)
[2024-01-10] MEDS: oxyCODONE 5 MG Tab PO PRN (02:14)
[2024-01-10] MEDS: Albuterol 0.083% 2.5 MG/3 ML Neb Soln NEB PRN (02:18)
[2024-01-10 04:56] LABS: BASOPHILS PERCENT AUTO 0.2 % (0.1-1.3); HEMATOCRIT 37.4 % (38.4-49.7); HEMOGLOBIN 12.3 g/dL (12.9-16.9); IMMATURE GRAN ABSOLUTE AUTO 0.03 K/uL (0.00-0.23); IMMATURE GRAN PERCENT AUTO 0.7 % (0.0-0.7); LYMPHOCYTES ABSOLUTE AUTO 0.34 K/uL (0.8-3.3); LYMPHOCYTES PERCENT AUTO 7.9 % (11.4-47.7); MEAN CORPUSCULAR HGB CONC 32.9 g/dL (31.6-35.5); MEAN CORPUSCULAR VOLUME 100.3 fL (81.4-99.0); MONOCYTES ABSOLUTE AUTO 0.06 K/uL (0.20-0.90); MONOCYTES PERCENT AUTO 1.4 % (3.3-12.6); NEUTROPHILS ABSOLUTE AUTO 3.86 K/uL (1.0-7.6); NEUTROPHILS PERCENT AUTO 89.8 % (40.0-78.1); PLATELET COUNT,PLT 79 K/uL (130-375); RED BLOOD CELL COUNT 3.73 M/uL (4.14-5.76); WHITE BLOOD CELL COUNT,WBC 4.3 K/uL (3.2-11.0)
[2024-01-10 05:15] LABS: CALCIUM 9.3 mg/dL (8.5-10.1); EST CRCL DRUG DOSING (CG) 66.46 mL/min; POTASSIUM,K 4.7 mmol/L (3.6-5.2)
[2024-01-10 05:16] LABS: BASOPHILS ABSOLUTE AUTO 0.01 K/uL (0.00-0.10)
[2024-01-10 05:19] LABS: ANION GAP 11.7 mmol/L (5.0-14.0)
[2024-01-10] MEDS ORDERED: Cholestyramine/Sucrose Powder 4 GM Packet PO PRN (07:58)
[2024-01-10] MEDS: Insulin Lispro 100 Unit/ML 3 ML KwikPen SUBCUT SCH (08:28)
[2024-01-10] MEDS: Tiotropium Bromide 4 GM Inhalation Spray (2.5mcg/1 dose; 10 doses) INH SCH (08:48)
[2024-01-10] MEDS ORDERED: Non-Formulary Medication 1 Each (Fluticasone/Umeclidin/Vilanter [Trelegy Ellipta 100-62.5- INH SCH (09:00)
[2024-01-10] MEDS: cefTRIAXone 2 GM in Water For Injection, Sterile 20 ML IV SCH (09:53)
[2024-01-10] MEDS: Hydrochlorothiazide 25 MG Tab PO SCH (09:56)
[2024-01-10] MEDS: Insulin Glargine,Human Rec. Analog 100 Units/ML 3 ML Pen SUBCUT SCH (09:57)
[2024-01-10] MEDS: Magnesium Oxide 400 MG Tab PO SCH (09:57)
[2024-01-10] MEDS: Multivitamins with Iron/Calcium/Folic Acid/Minerals Tab PO SCH (10:14)
[2024-01-10] MEDS: Doxycycline 100 MG Cap PO SCH (10:14)
[2024-01-10] MEDS: Albuterol/Ipratropium 3.0-0.5 MG/3 ML Neb Soln NEB SCH (10:29)
[2024-01-10] MEDS: predniSONE 20 MG Tab PO ONE (12:32)
[2024-01-10] MEDS: LORazepam 0.5 MG Tab PO PRN (15:52)
[2024-01-10] MEDS: Benzocaine/Cetylpyridinium/Menthol Lozenge MUCMEM PRN (17:10)
[2024-01-10] MEDS ORDERED: CEFTRIAXONE IV SCH (20:00)
[2024-01-10] MEDS ORDERED: STERILE IV SCH (20:00)
[2024-01-10] MEDS ORDERED: WATER FOR INJECTION IV SCH (20:00)
[2024-01-10] MEDS: Formoterol/Mometasone 100-5 MCG 8.8 GM Inhaler IH SCH (21:09)
[2024-01-11] MEDS: Tiotropium Bromide 4 GM Inhalation Spray (2.5mcg/1 dose; 10 doses) INH SCH (06:55)
[2024-01-11] MEDS: predniSONE 20 MG Tab PO SCH (08:22)
[2024-01-11] MEDS: Loperamide 2 MG Cap PO PRN (19:50)
[2024-01-12] MEDS: Codeine/guaiFENesin 10-100 MG/5 ML Syrup 5 ML Cup PO PRN (00:19)
[2024-01-12] MEDS: Cefdinir 300 MG Cap PO SCH (08:27)
[2024-01-13] MEDS ORDERED: Sodium Chloride 0.65% Nasal Spray 45 ML Bottle NAS PRN (10:52)
[2024-01-13] MEDS: Acetylcysteine 20% 200 MG/ML 4 ML Nebulizer Soln SDV NEB SCH (14:03)
[2024-01-13] MEDS ORDERED: predniSONE 5 MG Tab PO SCH (21:00)
== END 2024-01-13 14:35 | disposition home or self-care (01) | DRG 189 ==
LOC: JP.ED 13:53 → JP.MS 19:16
PROVIDERS: ADMIT Internal Medicine; ATTEND Hospitalist
DX: J96.21 Acute and chronic respiratory failure with hypoxia (principal); J44.0 Chronic obstructive pulmonary disease with (acute) lower respiratory infection; E11.9 Type 2 diabetes mellitus without complications; L03.115 Cellulitis of right lower limb; L03.116 Cellulitis of left lower limb; J44.1 Chronic obstructive pulmonary disease with (acute) exacerbation; Z88.8 Allergy status to other drugs, medicaments and biological substances; Z66 Do not resuscitate; J20.9 Acute bronchitis, unspecified; G89.29 Other chronic pain; M54.9 Dorsalgia, unspecified; M54.50 Low back pain, unspecified; E11.42 Type 2 diabetes mellitus with diabetic polyneuropathy; E87.5 Hyperkalemia; E66.9 Obesity, unspecified; F41.9 Anxiety disorder, unspecified; I10 Essential (primary) hypertension; I87.2 Venous insufficiency (chronic) (peripheral); I27.20 Pulmonary hypertension, unspecified; Z79.4 Long term (current) use of insulin; Z79.52 Long term (current) use of systemic steroids; Z68.32 Body mass index [BMI] 32.0-32.9, adult; Z79.899 Other long term (current) drug therapy; Z98.890 Other specified postprocedural states
CPT/HCPCS: 36415; 71045; 80053; 81001; 83605; 83880; 84145; 84484; 85025; 85379; 86140; 87040 ×2; 93005; 93010; 96361; 96374; 96376; 99285 ×2; J2270 ×2; J7120; U0002; 80048; 82947; 94640; 94667; 99222; 99232; 99238; A9270-GY; J0696; J1650; J1815; J1815-GY; J2919; J3370; J3490; J7050; J7512; J7620

== ENCOUNTER 2024-05-21 11:25 | Inpatient (IN) | payer MEDICARE ==
[2024-05-21] MEDS ORDERED: Sodium Chloride 0.9% 10 ML Syringe FLUSH PRN (12:06)
[2024-05-21] MEDS ORDERED: Ondansetron 4 MG/2 ML SDV IV PRN (12:06)
[2024-05-21] MEDS ORDERED: Polyethylene Glycol 3350 Powder 17 GM Packet PO PRN (12:06)
[2024-05-21 12:28] LABS: BASE EXCESS ARTERIAL 2.8 mm/L; BICARBONATE,ARTERIAL 25.8 mmol/L (22.0-26.0); CARBOXYHEMOGLOBIN 2.8 % (0.0-1.6); METHEMOGLOBIN 0.6 %; O2 SATURATION ARTERIAL 97.9 % (95.0-98.0); OXYHEMOGLOBIN 94.6 %; PCO2 ARTERIAL 35.5 mmHg (35.0-42.0); PO2 ARTERIAL 94.2 mmHg (75.0-100.0); TOTAL HEMOGLOBIN 12.4 g/dL (13.5-18.0)
[2024-05-21 12:48] LABS: A/G RATIO 0.8 (1.2-2.2); BILIRUBIN DIRECT 0.29 mg/dL (0.0-0.2); BILIRUBIN INDIRECT 0.91; BILIRUBIN TOTAL 1.2 mg/dL (0.2-1.0); C-REACTIVE PROTEIN 1.44 mg/dL (<0.50); MAGNESIUM 1.7 mg/dL (1.8-2.4); PROTEIN TOTAL,TP 6.8 g/dL (6.4-8.2)
[2024-05-21] MEDS: methylPREDNISolone Sodium Succinate 40 MG/1 ML SDV IVPUSH SCH (13:14)
[2024-05-21] MEDS ORDERED: Albuterol 6.7 GM Inhaler INH PRN (14:18)
[2024-05-21] MEDS ORDERED: OXYCODONE HCL 30 MG PO PRN (14:18)
[2024-05-21] MEDS ORDERED: Glucose Gel 15 GM in 37.5 GM Tube PO PRN (14:21)
[2024-05-21] MEDS ORDERED: 50% Dextrose in Water 50 ML Syringe IV PRN (14:21)
[2024-05-21] MEDS ORDERED: LORazepam 0.5 MG Tab PO SCH (14:30)
[2024-05-21] MEDS ORDERED: LORazepam 0.5 MG Tab PO PRN (15:08)
[2024-05-21] MEDS: Sodium Chloride 0.9% 100 ML IV ONE (15:16)
[2024-05-21] MEDS: Iopamidol 755 Mg/ML 100 ML Bottle IV ONE (15:17)
[2024-05-21] MEDS: Enoxaparin 40 MG/0.4 ML Syringe SUBCUT SCH (15:31)
[2024-05-21] MEDS: Sodium Chloride 0.9% 10 ML Syringe FLUSH ONE (15:32)
[2024-05-21] MEDS: Benzocaine/Cetylpyridinium/Menthol Lozenge MUCMEM PRN (15:37)
[2024-05-21] MEDS: oxyCODONE 5 MG Tab PO PRN (15:37)
[2024-05-21] MEDS ORDERED: Psyllium Husk Powder Sugar Free 5.85 GM Packet PO PRN (16:25)
[2024-05-21] MEDS: cefTRIAXone 1 GM in Sodium Chloride 0.9% 50 ML IV SCH (16:47)
[2024-05-21] MEDS ORDERED: Potassium Chloride 10 MEQ Cap.ER PO SCH (17:00)
[2024-05-21] MEDS: Magnesium Sulf/Wat 2 GM/50 mL 2 GM in Premix Bag 1 BAG IV SCH (17:26)
[2024-05-21] MEDS: Doxycycline 100 MG in Sodium Chloride 0.9% 100 ML IV SCH (17:27)
[2024-05-21] MEDS: Insulin Lispro 100 Unit/ML 3 ML KwikPen SUBCUT SCH (17:27)
[2024-05-21] MEDS: Potassium Chloride 20 MEQ Tab.ER PO SCH (17:29)
[2024-05-21] MEDS: Bumetanide 2.5 MG, Bumetanide 0.5 MG IVPUSH SCH (17:34)
[2024-05-21] MEDS ORDERED: Bumetanide 2.5 MG/10 ML MDV IVPUSH SCH (19:00)
[2024-05-21] MEDS: Albuterol/Ipratropium 3.0-0.5 MG/3 ML Neb Soln NEB PRN (19:15)
[2024-05-21 19:40] LABS: CORONAVIRUS COVID-19 NAA NEGATIVE (NEGATIVE); INFLUENZA A NAA NEGATIVE (NEGATIVE); INFLUENZA B NAA NEGATIVE (NEGATIVE); RESPIRATORY SYNCYTIAL VIR NAA NEGATIVE (NEGATIVE)
[2024-05-21] MEDS: Formoterol/Mometasone 100-5 MCG 8.8 GM Inhaler IH SCH (20:15)
[2024-05-21] MEDS: Pregabalin 25 MG Cap PO SCH (20:15)
[2024-05-21] MEDS ORDERED: PREGABALIN 25 MG PO SCH (21:00)
[2024-05-21] MEDS: Albuterol 0.083% 2.5 MG/3 ML Neb Soln NEB PRN (22:35)
[2024-05-22] MEDS: Ipratropium 0.02% 0.5 MG/2.5 ML Neb Soln INH SCH (07:09)
[2024-05-22] MEDS: Tiotropium Bromide 4 GM Inhalation Spray (2.5mcg/1 dose; 10 doses) INH SCH (07:17)
[2024-05-22] MEDS: metFORMIN 500 MG Tab PO SCH (08:10)
[2024-05-22] MEDS: Magnesium Oxide 400 MG Tab PO SCH ×2 (08:11→20:25)
[2024-05-22] MEDS: predniSONE 20 MG Tab PO SCH (08:11)
[2024-05-22 08:37] LABS: ANION GAP 12.1 mmol/L (5.0-14.0); CALCIUM 9.1 mg/dL (8.5-10.1); CREATININE 1.1 mg/dL (0.8-1.3); EST CRCL DRUG DOSING (CG) 59.61 mL/min; MAGNESIUM 2.1 mg/dL (1.8-2.4); POTASSIUM,K 4.1 mmol/L (3.6-5.2)
[2024-05-22] MEDS ORDERED: [UNRECOGNIZED DRUG - OTHER] PO SCH (09:00)
[2024-05-22] MEDS ORDERED: Non-Formulary Medication 1 Each (Fluticasone/Umeclidin/Vilanter [Trelegy Ellipta 100-62.5- INH SCH (09:00)
[2024-05-22] MEDS ORDERED: Non-Formulary Medication 1 Each (Psyllium [Metamucil] 0.52 GM Cap) PO SCH (09:00)
[2024-05-22] MEDS ORDERED: MAGNESIUM CITRATE AND OXIDE 250 MG PO SCH (09:00)
[2024-05-22] MEDS: guaiFENesin 600 MG Tab.ER PO SCH (14:57)
[2024-05-23 05:46] LABS: HEMATOCRIT 34.4 % (38.4-49.7); HEMOGLOBIN 11.5 g/dL (12.9-16.9); MEAN CORPUSCULAR HEMOGLOBIN 32.4 pg (31.6-35.5); MEAN CORPUSCULAR HGB CONC 33.4 g/dL (31.6-35.5); MEAN CORPUSCULAR VOLUME 96.9 fL (81.4-99.0); RED BLOOD CELL COUNT 3.55 M/uL (4.14-5.76); WHITE BLOOD CELL COUNT,WBC 6.8 K/uL (3.2-11.0)
[2024-05-23 05:57] LABS: CALCIUM 8.6 mg/dL (8.5-10.1); EST CRCL DRUG DOSING (CG) 65.57 mL/min; MAGNESIUM 1.9 mg/dL (1.8-2.4); POTASSIUM,K 4.3 mmol/L (3.6-5.2)
[2024-05-23 05:59] LABS: ANION GAP 8.3 mmol/L (5.0-14.0)
== END 2024-05-23 11:40 | disposition home or self-care (01) | DRG 190 ==
LOC: JP.MS 11:25
PROVIDERS: ADMIT Hospitalist; ATTEND Hospitalist
DX: J44.1 Chronic obstructive pulmonary disease with (acute) exacerbation (principal); J96.21 Acute and chronic respiratory failure with hypoxia; L03.90 Cellulitis, unspecified; J40 Bronchitis, not specified as acute or chronic; Z66 Do not resuscitate; I10 Essential (primary) hypertension; I27.20 Pulmonary hypertension, unspecified; K46.9 Unspecified abdominal hernia without obstruction or gangrene; F41.9 Anxiety disorder, unspecified; I87.2 Venous insufficiency (chronic) (peripheral); E11.42 Type 2 diabetes mellitus with diabetic polyneuropathy; Z98.890 Other specified postprocedural states; Z79.899 Other long term (current) drug therapy; Z88.8 Allergy status to other drugs, medicaments and biological substances
CPT/HCPCS: 0241U; 36415; 36600; 71046; 71275; 80048; 80076; 82803; 82947; 83735; 84145; 85027; 86140; 87070; 87077; 87205; 94640; 97161; 97530; 99222; 99232; 99238; A9270-GY; J0696; J1650; J1815; J1939; J2919; J3475; J3490; J7512; J7613; J7620; Q9967

== ENCOUNTER 2024-06-04 02:03 | Emergency (ER) | payer MEDICARE ==
[2024-06-04] MEDS: 50% Dextrose in Water 50 ML Syringe IVPUSH ONE (02:17)
[2024-06-04 02:50] LABS: BASOPHILS ABSOLUTE AUTO 0.06 K/uL (0.00-0.10); BASOPHILS PERCENT AUTO 0.4 % (0.1-1.3); EOSINOPHILS ABSOLUTE AUTO 0.22 K/uL (0.00-0.40); EOSINOPHILS PERCENT AUTO 1.4 % (0.0-5.4); HEMATOCRIT 44.4 % (38.4-49.7); HEMOGLOBIN 14.9 g/dL (12.9-16.9); IMMATURE GRAN ABSOLUTE AUTO 0.33 K/uL (0.00-0.23); IMMATURE GRAN PERCENT AUTO 2.2 % (0.0-0.7); LYMPHOCYTES ABSOLUTE AUTO 1.65 K/uL (0.8-3.3); LYMPHOCYTES PERCENT AUTO 10.8 % (11.4-47.7); MEAN CORPUSCULAR HEMOGLOBIN 32.3 pg (31.6-35.5); MEAN CORPUSCULAR HGB CONC 33.6 g/dL (31.6-35.5); MEAN CORPUSCULAR VOLUME 96.1 fL (81.4-99.0); MONOCYTES ABSOLUTE AUTO 1.44 K/uL (0.20-0.90); MONOCYTES PERCENT AUTO 9.4 % (3.3-12.6); NEUTROPHILS ABSOLUTE AUTO 11.57 K/uL (1.0-7.6); NEUTROPHILS PERCENT AUTO 75.8 % (40.0-78.1); PLATELET COUNT,PLT 88 K/uL (130-375); RED BLOOD CELL COUNT 4.62 M/uL (4.14-5.76); WHITE BLOOD CELL COUNT,WBC 15.3 K/uL (3.2-11.0)
[2024-06-04 03:06] LABS: BLOOD UREA NITROGEN,BUN 26 mg/dL (7-18); CALCIUM 8.9 mg/dL (8.5-10.1); CARBON DIOXIDE,CO2 32 mmol/L (21-32); CHLORIDE,CL 100 mmol/L (100-108); EST CRCL DRUG DOSING (CG) 65.57 mL/min; ESTIMATED GFR 83 mL/min (>60); GLUCOSE RANDOM 82 mg/dL (74-106); SODIUM,NA 139 mmol/L (140-148)
[2024-06-04 03:15] LABS: ANION GAP 9.6 mmol/L (5.0-14.0); C-REACTIVE PROTEIN < 0.50 mg/dL (<0.50); POTASSIUM,K 2.6 mmol/L (3.6-5.2)
[2024-06-04] MEDS: 50% Dextrose in Water 50 ML Syringe ONE (03:49)
[2024-06-04] MEDS: NS + KCl 20mEq/L 1,000 ML IV SCH (03:55)
[2024-06-04] MEDS: Potassium Chloride 20 MEQ Tab.ER PO ONE (04:10)
[2024-06-04] MEDS: oxyCODONE 5 MG Tab PO ONE (07:14)
== END 2024-06-04 07:45 | disposition home or self-care (01) ==
LOC: JP.ED 02:03
DX: E11.649 Type 2 diabetes mellitus with hypoglycemia without coma (principal); I10 Essential (primary) hypertension; J44.9 Chronic obstructive pulmonary disease, unspecified; E66.9 Obesity, unspecified; E87.6 Hypokalemia; Z79.4 Long term (current) use of insulin; Z79.899 Other long term (current) drug therapy; Z88.8 Allergy status to other drugs, medicaments and biological substances; Z79.84 Long term (current) use of oral hypoglycemic drugs; Z68.31 Body mass index [BMI] 31.0-31.9, adult
CPT/HCPCS: 36415; 80048; 82947; 83605; 85025; 86140; 96365; 96366; 96375; 99214; 99284; 99285; A9270; J3480